=== PATIENT | female | born 1975 | race American Indian/Alaskan Native ===

== ENCOUNTER 2018-07-12 13:43 | Inpatient (IN) | payer OTHER ==
[2018-07-12 14:45] LABS: Basophils % (Auto) 0.3 % (0.0-1.8); Eosinophils % (Auto) 0.1 % (0.0-4.3); Hematocrit 22.2 % (30.3-42.9); Hemoglobin 6.4 gm/dl (10.1-14.3); Lymphocytes # (Auto) 1.2 K/mm3 (1.2-5.4); Lymphocytes % (Auto) 11.7 % (13.4-35.0); Mean Corpuscular HGB Conc 29 % (30-34); Monocytes # (Auto) 0.4 K/mm3 (0.0-0.8); Monocytes % (Auto) 4.4 % (0.0-7.3); Platelet Count 399 K/mm3 (140-440); Red Blood Count 3.36 M/mm3 (3.65-5.03)
[2018-07-12 14:48] LABS: Mean Corpuscular Hemoglobin 19 pg (28-32); Mean Corpuscular Volume 66 fl (79-97); Red Cell Distribution Width 20.2 % (13.2-15.2)
[2018-07-12] MEDS ORDERED: NACL 0.9% 1000 ML 1,000 ML IV ONE (14:48)
[2018-07-12] MEDS ORDERED: MORPHINE IV ONE (14:48)
[2018-07-12] MEDS ORDERED: ZOFRAN IV ONE (14:48)
[2018-07-12] MEDS ORDERED: TORADOL IV ONE (14:48)
--- NOTE | 2018-07-12 14:54 | Emergency Department Report ---
ED General Adult HPI - General Chief complaint: Abdominal Pain Stated complaint: WEAKNESS/ABD PAIN Time Seen by Provider: 07/12/18 14:43 Source: patient, EMS Mode of arrival: Ambulatory Limitations: No Limitations - History of Present Illness Initial comments: Patient is a 43-year-old Martiniqu[place] female who is presenting with multiple complaints. Patient states she has a history of peripheral neuropathy and has had multiple episodes where she has some much pain in her legs that she can't move. Patient states she cannot move her legs at this time. She states she has 8 out of 10 pain in the bilateral lower extremities as a burning sensation. Patient also states she has a burning sensation in the suprapubic region as well with fecal and urinary incontinence. Patient denies any back pain. Patient denies fever or trauma. -: days(s) (4) Severity scale (0 -10): 10 Quality: burning Consistency: constant Associated Symptoms: headaches, malaise. denies: confusion, chest pain, cough, diaphoresis, fever/chills, loss of appetite, nausea/vomiting, rash, seizure, shortness of breath, syncope, weakness - Related Data Home Medications Medication Instructions Recorded Confirmed Last Taken Ranitidine HCl [Zantac] 150 mg PO BID 08/28/13 04/22/15 04/21/15 Previous Rx's Medication Instructions Recorded Last Taken Type Clopidogrel [Plavix] 75 mg PO QDAY #30 tablet 04/23/15 Unknown Rx Ferrous Sulfate [Feosol 325 MG tab] 325 mg PO TID #30 04/23/15 04/21/15 Rx Simvastatin [Zocor TAB] 20 mg PO QHS #30 tablet 04/23/15 Unknown Rx Allergies Allergy/AdvReac Type Severity Reaction Status Date / Time aspirin Allergy Hives Verified 04/22/15 07:02 ED Review of Systems ROS: Stated complaint: WEAKNESS/ABD PAIN Other details as noted in HPI Comment: All other systems reviewed and negative ED Past Medical Hx - Past Medical History Previous Medical History?: Yes Hx Hypertension: Yes Hx CVA: Yes (TIA) Hx Congestive Heart Failure: No Hx Diabetes: No Hx GERD: Yes Hx Asthma: Yes Hx COPD: No - Surgical History Past Surgical History?: Yes Additional Surgical History: csection x 7 - Social History Smoking Status: Never Smoker Substance Use Type: None - Medications Home Medications: Home Medications Medication Instructions Recorded Confirmed Last Taken Type Ranitidine HCl [Zantac] 150 mg PO BID 08/28/13 04/22/15 04/21/15 History Clopidogrel [Plavix] 75 mg PO QDAY #30 tablet 04/23/15 Unknown Rx Ferrous Sulfate [Feosol 325 MG tab] 325 mg PO TID #30 04/23/15 04/22/15 Rx Simvastatin [Zocor TAB] 20 mg PO QHS #30 tablet 04/23/15 Unknown Rx ED Physical Exam - General Limitations: No Limitations General appearance: alert, in no apparent distress, obese - Head Head exam: Present: atraumatic, normocephalic - Eye Eye exam: Present: normal appearance - ENT ENT exam: Present: mucous membranes moist - Neck Neck exam: Present: normal inspection - Respiratory Respiratory exam: Present: normal lung sounds bilaterally. Absent: respiratory distress, wheezes, rales, rhonchi - Cardiovascular Cardiovascular Exam: Present: regular rate, normal rhythm. Absent: systolic murmur, diastolic murmur, rubs, gallop - GI/Abdominal GI/Abdominal exam: Present: soft, normal bowel sounds. Absent: distended, tenderness, guarding, rebound - Extremities Exam Extremities exam: Present: normal inspection, tenderness (H and states she has generalized tenderness to the bilateral lower extremities. Patient initially stated that she was unable to move however she was able to straighten both legs out on her own.), normal capillary refill. Absent: joint swelling - Back Exam Back exam: Present: normal inspection - Neurological Exam Neurological exam: Present: alert, oriented X3, CN II-XII intact, motor sensory deficit (patient with 4 out of 5 strength in the bilateral lower extremities. Patient states she is able to feel light touch bilaterally.) - Psychiatric Psychiatric exam: Present: normal affect, normal mood - Skin Skin exam: Present: warm, dry, intact, normal color. Absent: rash ED Course Vital Signs 07/12/18 07/12/18 07/12/18 14:12 14:16 14:17 Temperature 99.3 F Pulse Rate 85 93 H Respiratory 19 16 Rate Blood Pressure 109/61 Blood Pressure 109/61 [Left] O2 Sat by Pulse 100 100 100 Oximetry 07/12/18 07/12/18 07/12/18 14:30 14:46 15:00 Temperature Pulse Rate 70 85 82 Respiratory 19 22 19 Rate Blood Pressure 109/61 109/61 116/80 Blood Pressure [Left] O2 Sat by Pulse 100 98 100 Oximetry 07/12/18 07/12/18 07/12/18 15:16 15:30 15:46 Temperature Pulse Rate 84 89 81 Respiratory 24 18 16 Rate Blood Pressure 116/80 103/66 103/66 Blood Pressure [Left] O2 Sat by Pulse 99 100 100 Oximetry 07/12/18 07/12/18 07/12/18 16:00 16:16 16:30 Temperature Pulse Rate 83 72 70 Respiratory 16 13 21 Rate Blood Pressure 103/66 116/69 116/69 Blood Pressure [Left] O2 Sat by Pulse 100 100 100 Oximetry ED Medical Decision Making - Lab Data Result diagrams: 07/12/18 14:33 07/12/18 14:33 Lab Results 07/12/18 07/12/18 07/12/18 Range/Units 14:33 14:33 Unknown WBC 10.0 (4.5-11.0) K/mm3 RBC 3.36 L (3.65-5.03) M/mm3 Hgb 6.4 L (10.1-14.3) gm/dl Hct 22.2 L (30.3-42.9) % MCV 66 L (79-97) fl MCH 19 L (28-32) pg MCHC 29 L (30-34) % RDW 20.2 H (13.2-15.2) % Plt Count 399 (140-440) K/mm3 Lymph % (Auto) 11.7 L (13.4-35.0) % [place] % (Auto) 4.4 (0.0-7.3) % Eos % (Auto) 0.1 (0.0-4.3) % Baso % (Auto) 0.3 (0.0-1.8) % Lymph # 1.2 (1.2-5.4) K/mm3 [place] # 0.4 (0.0-0.8) K/mm3 Eos # 0.0 (0.0-0.4) K/mm3 Baso # 0.0 (0.0-0.1) K/mm3 Seg Neutrophils % 83.5 H (40.0-70.0) % Seg Neutrophils # 8.3 H (1.8-7.7) K/mm3 Sodium 138 (137-145) mmol/L Potassium 4.0 (3.6-5.0) mmol/L Chloride 107.8 H (98-107) mmol/L Carbon Dioxide 17 L (22-30) mmol/L Anion Gap 17 mmol/L BUN 8 (7-17) mg/dL Creatinine 0.5 L (0.7-1.2) mg/dL Estimated GFR > 60 ml/min BUN/Creatinine Ratio 16 % Glucose 100 (65-100) mg/dL Calcium 8.4 (8.4-10.2) mg/dL Lipase 12 L (13-60) units/L Urine Color Yellow (Yellow) Urine Turbidity Cloudy (Clear) Urine pH 6.0 (5.0-7.0) Ur Specific [place] 1.009 (1.003-1.030) Urine Protein <15 mg/dl (Negative) mg/dL Urine Glucose (UA) Neg (Negative) mg/dL Urine Ketones Tr (Negative) mg/dL Urine Blood Mod (Negative) Urine Nitrite Pos (Negative) Ur Reducing Substances Not Reportable Urine Bilirubin Neg (Negative) Urine Ictotest Not Reportable Urine Urobilinogen 2.0 (<2.0) mg/dL Ur Leukocyte Esterase Sm (Negative) Urine WBC (Auto) 46.0 H (0.0-6.0) /HPF Urine RBC (Auto) 31.0 (0.0-6.0) /HPF U Epithel Cells (Auto) 5.0 (0-13.0) /HPF Urine Bacteria (Auto) 4+ (Negative) /HPF Urine Mucus Few /HPF Urine Yeast (Budding) 3+ /HPF Urine HCG, Qual Negative (Negative) - Medical Decision Making Patient is a 43-year-old female who states she's been incontinent of stool and urine for the past 3 days. After the patient's hemoglobin returned did ask the patient she's noticed any blood in the stools and she stated that she had. Patient states she has a burning sensation in the suprapubic region, urinalysis does show that the patient has a urinary tract infection. Regarding the patient 's anemia patient has some chronic anemia but not to this degree according to the last studies that are in the [facility] system. Patient was guaiac negative at this time. Patient's type and screen will be given 1 unit of packed red blood cells. Patient's numbness in her extremities most likely secondary to her anemia and peripheral neuropathy. Patient be admitted to the hospitalist service at this time. Critical care attestation.: If time is entered above; I have spent that time in minutes in the direct care of this critically ill patient, excluding procedure time. ED Disposition Clinical Impression: Symptomatic anemia, Weakness Acute cystitis Qualifiers: Hematuria presence: with hematuria Qualified Code(s): N30.01 - Acute cystitis with hematuria Disposition: OP ADMIT IP TO THIS HOSP Is pt being admited?: Yes Does the pt Need Aspirin: No Condition: Stable Instructions: Abdominal Pain (ED) Referrals: PRIMARY CARE, [Primary Care Provider] - 3-5 Days Time of Disposition: 17:17
[2018-07-12 15:19] LABS: BUN/Creatinine Ratio 16; Blood Urea Nitrogen 8 mg/dL (7-17); Calcium 8.4 mg/dL (8.4-10.2); Hemolysis Index 2; Lipase 12 units/L (13-60)
[2018-07-12 16:39] LABS: HCG Qualitative,Urine Negative (Negative)
[2018-07-12 16:41] LABS: Bacteria,Urine 4+ /HPF (Negative); Bilirubin,Urine NEG (Negative); Blood,Urine MOD (Negative); Color,Urine Yellow (Yellow); Mucus,Urine FEW /HPF; Protein,Urine <15 mg/dL mg/dL (Negative)
[2018-07-12] MEDS ORDERED: NACL 0.9% 500 ML 500 ML IV ONE (17:01)
[2018-07-12] MEDS ORDERED: LEVAQUIN 500MG/100ML 500 MG/100 ML BAG IV ONE (17:02)
--- NOTE | 2018-07-12 17:15 | History and Physical Report ---
History of Present Illness Chief complaint: I feel weak History of present illness: 43 YO Female with MO, GERD, Asthma, HTN, Peripheral Neuropathy, TIA presents to ED for evaluation. Pt states that she has experienced leg weaknes and tingling over the past 1 week, with worsening symptoms over the past 1 day. Pt states that she is unable to walk at this time, or bear weight. Pt states that is asked to walk she will "Fall flat on my face". Pt also acknowledges a burning pain to both legs. Pt states that pain is 10/10, constant. Pt acknowledges fecal and urinary incontinence. Pt denies fever, chills, PC, palpitations, NVD, skin rash, or recent ill contacts. Pt seen and evaluated in ED and found to have UTI, Symptomatic Anemia, as well as Hyperchloremic metabolic acidosis. Pt admitted to medical floor. Neurology consulted in ED. Past History Past Medical History: GERD, hypertension, stroke Past Surgical History: Social history: single. denies: smoking, alcohol abuse, prescription drug abuse Family history: hypertension Medications and Allergies Allergies Allergy/AdvReac Type Severity Reaction Status Date / Time aspirin Allergy Hives Verified 04/22/15 07:02 Home Medications Medication Instructions Recorded Confirmed Last Taken Type Ranitidine HCl [Zantac] 150 mg PO BID 08/28/13 04/22/15 04/21/15 History Clopidogrel [Plavix] 75 mg PO QDAY #30 tablet 04/23/15 Unknown Rx Ferrous Sulfate [Feosol 325 MG tab] 325 mg PO TID #30 04/23/15 04/22/15 Rx Simvastatin [Zocor TAB] 20 mg PO QHS #30 tablet 04/23/15 Unknown Rx Active Meds: Active Medications Levofloxacin/Dextrose (Levaquin 500mg/100ml) 500 mg in 100 mls @ 100 mls/hr IV ONCE ONE Stop: 07/12/18 18:01 Review of Systems Constitutional: weakness, no weight loss, no weight gain, no fever, no chills Ears, nose, mouth and throat: no ear pain, no ear discharge, no tinnitis, no decreased hearing, no nose pain, no nasal congestion, no nasal discharge, no sinus pressure Breasts: no change in shape, no swelling, no mass Cardiovascular: no chest pain, no orthopnea, no palpitations, no rapid/ irregular heart beat, no edema, no syncope, no lightheadedness Respiratory: no cough, no cough with sputum, no excessive sputum, no hemoptysis , no shortness of breath Gastrointestinal: no abdominal pain, no nausea, no vomiting Genitourinary Female: other (urinary incontinence), no pelvic pain, no flank pain, no menorrhagia, no dysuria, no urinary frequency, no urgency Rectal: no pain, no incontinence, no bleeding Musculoskeletal: no neck stiffness, no neck pain, no shooting arm pain, no arm numbness/tingling, no low back pain, no shooting leg pain, no leg numbness/ tingling Integumentary: no rash, no pruritis, no sores, no wounds, no jaundice Neurological: weakness, parathesias, numbness, tingling Psychiatric: no anxiety, no memory loss, no change in sleep habits, no sleep disturbances, no insomnia, no hypersomnia, no change in appetite, no change in libido Endocrine: no cold intolerance, no heat intolerance, no polyphagia, no excessive thirst, no polydipsia, no polyuria, no nocturia, no excessive sweating Hematologic/Lymphatic: no easy bruising, no easy bleeding, no lymphadenopathy, no lymphedema Allergic/Immunologic: no urticaria, no allergic rhinitis, no wheezing, no persistent infections, no anaphylaxis, no angioedema Exam - Constitutional Vitals: Temp Pulse Resp BP Pulse Ox 99.3 F 70 21 116/69 100 07/12/18 14:17 07/12/18 16:30 07/12/18 16:30 07/12/18 16:30 07/12/18 16:30 General appearance: Present: mild distress, obese - EENT Eyes: Present: PERRL ENT: hearing intact, clear oral mucosa - Neck Neck: Present: supple, normal ROM - Respiratory Respiratory effort: normal Respiratory: bilateral: CTA - Cardiovascular Heart Sounds: Present: S1 & S2. Absent: rub, click - Extremities Extremities: pulses symmetrical, No edema Peripheral Pulses: within normal limits - Abdominal General gastrointestinal: Present: soft, non-tender, non-distended, normal bowel sounds Female genitourinary: Present: normal - Integumentary Integumentary: Present: clear, warm, dry - Musculoskeletal Musculoskeletal: other (BLE Weakness, ) - Psychiatric Psychiatric: intact judgment & insight, memory intact, depressed - Neurologic Neurologic: CNII-XII intact, focal deficits, no moves all extremities, no gait normal Results - Labs CBC & Chem 7: 07/12/18 14:33 07/12/18 14:33 Labs: Abnormal lab results 07/12/18 07/12/18 07/12/18 Range/Units 14:33 14:33 Unknown RBC 3.36 L (3.65-5.03) M/mm3 Hgb 6.4 L (10.1-14.3) gm/dl Hct 22.2 L (30.3-42.9) % MCV 66 L (79-97) fl MCH 19 L (28-32) pg MCHC 29 L (30-34) % RDW 20.2 H (13.2-15.2) % Lymph % (Auto) 11.7 L (13.4-35.0) % Seg Neutrophils % 83.5 H (40.0-70.0) % Seg Neutrophils # 8.3 H (1.8-7.7) K/mm3 Chloride 107.8 H (98-107) mmol/L Carbon Dioxide 17 L (22-30) mmol/L Creatinine 0.5 L (0.7-1.2) mg/dL Lipase 12 L (13-60) units/L Urine WBC (Auto) 46.0 H (0.0-6.0) /HPF Assessment and Plan - Patient Problems (1) UTI (urinary tract infection) Current Visit: Yes Status: Acute Qualifiers: Urinary tract infection type: acute cystitis Plan to address problem: IV antibiotic therapy, urinalysis, cbc, cmp, (2) Anemia Current Visit: Yes Status: Acute Qualifiers: Hemolytic anemia type: acquired, nonautoimmune, drug-induced Plan to address problem: PRBC Transfusion, repeat cbc, ESR, CRP, (3) Acidosis Current Visit: Yes Status: Acute Plan to address problem: IVF resuscitation, repeat bmp, (4) Obesity hypoventilation syndrome Current Visit: Yes Status: Acute Plan to address problem: supplemental oxygen, nebulizer therapy, NIPPV as clinically indicated. (5) Neuropathy Current Visit: Yes Status: Acute Plan to address problem: MRI Thoracic/Lumbar Spine, Neurology consult, ESR, CRP, Complement Levels, Magnesium level, Vitamin b12 level, initiate neurontin therapy (6) DVT prophylaxis Current Visit: Yes Status: Acute Plan to address problem: SCD to BLE while in bed.
[2018-07-12] MEDS ORDERED: PROVENTIL IH PRN (17:23)
[2018-07-12] MEDS ORDERED: SODIUM CHLORIDE FLUSH SYRINGE 10 ML IV PRN (17:23)
[2018-07-12] MEDS: FEOSOL PO SCH (20:00)
[2018-07-12 20:17] LABS: C-Reactive Protein 0.5 mg/dL (0.00-1.30)
[2018-07-12] MEDS: PEPCID PO SCH (21:38)
[2018-07-12] MEDS: NEURONTIN PO SCH (21:39)
[2018-07-12] MEDS: PRAVACHOL PO SCH (21:39)
[2018-07-12] MEDS ORDERED: NON-FORMULARY (Ranitidine Hcl [Zantac] 150 MG) PO SCH (22:00)
[2018-07-12] MEDS ORDERED: NON-FORMULARY (Simvastatin 20 MG) PO SCH (22:00)
[2018-07-12] MEDS: SODIUM CHLORIDE FLUSH SYRINGE 10 ML IV SCH (22:00)
[2018-07-12] MEDS ORDERED: NACL 0.9% 250ML 250 ML ONE (22:54)
[2018-07-12] MEDS: TYLENOL PO PRN (23:52)
[2018-07-13] MEDS: FEOSOL PO SCH ×3 (08:45→21:45)
[2018-07-13] MEDS: NEURONTIN PO SCH ×2 (09:21→21:46)
[2018-07-13] MEDS: PLAVIX PO SCH (09:21)
[2018-07-13] MEDS: PEPCID PO SCH ×2 (09:21→21:45)
[2018-07-13] MEDS: SODIUM CHLORIDE FLUSH SYRINGE 10 ML IV SCH ×2 (09:21→21:48)
[2018-07-13 10:46] LABS: Hematocrit 27.5 % (30.3-42.9); Hemoglobin 7.9 gm/dl (10.1-14.3)
[2018-07-13] MEDS: TYLENOL PO PRN (13:39)
[2018-07-13] MEDS: ZOFRAN IV PRN ×2 (13:40→22:06)
--- NOTE | 2018-07-13 15:07 | Progress Note ---
Assessment and Plan B/l LE weakness - had episode of urine and bladder incontinence per history but no episode since admission - MRI of the lumber back pending - neurology consulted to clinicallt r/o transverse mylitis/spinal cord stenosis /UTI (urinary tract infection) IV antibiotic therapy, follow cx /Blood loss Anemia s/p PRBC Transfusion, repeat cbc, likley from menorrhagia /Morbid Obesity nutrition recommendation / Neuropathy Current Visit: Yes Status: Acute Plan to address problem: MRI Thoracic/Lumbar Spine pending, Neurology consulted, ordered ESR, CRP, Complement Levels, Magnesium level, Vitamin b12 level, initiate neurontin therapy / DVT prophylaxis SCD to BLE while in bed. Subjective Date of service: 07/13/18 Interval history: Pt seen and examined no episode of urine and bowel incontinence today Showed poor tolerance to PT Objective - Constitutional Vitals: Vital Signs - 12hr 07/13/18 07/13/18 07/13/18 06:01 09:19 10:00 Temperature 99.4 F 98.9 F Pulse Rate 72 80 Respiratory 18 20 18 Rate Blood Pressure 107/64 113/65 O2 Sat by Pulse 98 100 Oximetry 07/13/18 13:39 Temperature Pulse Rate Respiratory 20 Rate Blood Pressure O2 Sat by Pulse Oximetry General appearance: Present: no acute distress, obese (morbid) - EENT Eyes: PERRL, EOM intact ENT: hearing intact, clear oral mucosa Ears: bilateral: normal - Neck Neck: supple, normal ROM - Respiratory Respiratory effort: normal Respiratory: bilateral: CTA - Cardiovascular Rhythm: regular Heart Sounds: Present: S1 & S2. Absent: gallop, rub Extremities: pulses intact, No edema, normal color - Gastrointestinal General gastrointestinal: Present: soft, non-tender, non-distended, normal bowel sounds - Integumentary Integumentary: clear, warm, dry - Musculoskeletal Musculoskeletal: other (b/l LE weakness) - Neurologic Neurologic: no gait normal - Psychiatric Psychiatric: memory intact, appropriate mood/affect, intact judgment & insight - Labs CBC & Chem 7: 07/14/18 07:41 07/14/18 07:41 Labs: Abnormal lab results 07/12/18 07/12/18 07/12/18 Range/Units 14:33 17:00 Unknown Hgb (10.1-14.3) gm/dl Hct (30.3-42.9) % Ch[place] 107.8 H (98-107) mmol/L Carbon Dioxide 17 L (22-30) mmol/L Creatinine 0.5 L (0.7-1.2) mg/dL Lipase 12 L (13-60) units/L Urine WBC (Auto) 46.0 H (0.0-6.0) /HPF Crossmatch See Detail 07/13/18 Range/Units 09:02 Hgb 7.9 L (10.1-14.3) gm/dl Hct 27.5 L (30.3-42.9) % [place] (98-107) mmol/L Carbon Dioxide (22-30) mmol/L Creatinine (0.7-1.2) mg/dL Lipase (13-60) units/L Urine WBC (Auto) (0.0-6.0) /HPF Crossmatch
--- NOTE | 2018-07-13 20:17 | Progress Note ---
Subjective Date of service: 07/13/18 Interval history: I took a very extensive history from patient she has PMH of severe anemia and prior peripheral neuropathy also hx of prior TIA;s due to lesion in carotid and was on plavix curiious that she was told CT/MRI have never shown stroke thee reflexes at ankles and knees are intact there is no clonus and Babinski sign is negative which argues agianst transverse myelitis and/o Guillain [place] Syndrome await MRI and diagnostic studies suspecct anemia and peripheral neuropathy thanks full note dictated Objective - Vital Sign Vital Signs - 12hr 07/13/18 07/13/18 07/13/18 09:19 10:00 11:50 Temperature 98.9 F 98.5 F Pulse Rate 80 80 Respiratory 20 18 19 Rate Blood Pressure 113/65 107/59 O2 Sat by Pulse 100 100 100 Oximetry 07/13/18 07/13/18 13:39 17:10 Temperature 97.9 F Pulse Rate 79 Respiratory 20 19 Rate Blood Pressure 120/74 O2 Sat by Pulse 100 Oximetry - Laboratory Findings CBC and BMP: 07/13/18 09:02 07/12/18 14:33 Abnormal Lab Findings: Abnormal Labs 07/12/18 07/12/18 07/12/18 14:33 14:33 17:00 RBC 3.36 L Hgb 6.4 L Hct 22.2 L MCV 66 L MCH 19 L MCHC 29 L RDW 20.2 H Lymph % (Auto) 11.7 L Seg Neutrophils % 83.5 H Seg Neutrophils # 8.3 H Chloride 107.8 H Carbon Dioxide 17 L Creatinine 0.5 L Lipase 12 L Urine WBC (Auto) Crossmatch See Detail 07/12/18 07/13/18 Unknown 09:02 RBC Hgb 7.9 L Hct 27.5 L MCV MCH MCHC RDW Lymph % (Auto) Seg Neutrophils % Seg Neutrophils # Chloride Carbon Dioxide Creatinine Lipase Urine WBC (Auto) 46.0 H Crossmatch
[2018-07-13] MEDS: PRAVACHOL PO SCH (21:45)
[2018-07-13] MEDS: NORCO 5/325 PO PRN (22:59)
[2018-07-14 08:27] LABS: Basophils % (Auto) 0.4 % (0.0-1.8); Eosinophils # (Auto) 0.2 K/mm3 (0.0-0.4); Eosinophils % (Auto) 2.8 % (0.0-4.3); Hemoglobin 7.5 gm/dl (10.1-14.3); Lymphocytes # (Auto) 2.3 K/mm3 (1.2-5.4); Lymphocytes % (Auto) 27.3 % (13.4-35.0); Mean Corpuscular HGB Conc 30 % (30-34); Monocytes # (Auto) 0.7 K/mm3 (0.0-0.8); Monocytes % (Auto) 8.5 % (0.0-7.3); Platelet Count 376 K/mm3 (140-440); Red Blood Count 3.68 M/mm3 (3.65-5.03)
[2018-07-14 08:35] LABS: BUN/Creatinine Ratio 15; Blood Urea Nitrogen 6 mg/dL (7-17); Calcium 8.3 mg/dL (8.4-10.2); Hemolysis Index 2; Mean Corpuscular Hemoglobin 20 pg (28-32); Mean Corpuscular Volume 68 fl (79-97)
[2018-07-14 08:36] LABS: Red Cell Distribution Width 20.8 % (13.2-15.2)
[2018-07-14] MEDS: SODIUM CHLORIDE FLUSH SYRINGE 10 ML IV SCH (11:25)
[2018-07-14] MEDS: NEURONTIN PO SCH ×2 (11:25→21:36)
[2018-07-14] MEDS: FEOSOL PO SCH ×3 (11:25→21:37)
[2018-07-14] MEDS: PLAVIX PO SCH (11:25)
[2018-07-14] MEDS: PEPCID PO SCH ×2 (11:25→21:37)
--- NOTE | 2018-07-14 13:08 | Progress Note ---
Assessment and Plan B/l LE weakness - had episode of urine and bladder incontinence per history but no episode since admission - MRI of the lumber back pending - neurology consulted to r/o transverse mylitis/spinal cord stenosis - clinically ruled out /UTI (urinary tract infection) IV antibiotic therapy, follow cx /Blood loss Anemia s/p PRBC Transfusion, repeat cbc, likely from menorrhagia due to fibroiduterus /Morbid Obesity nutrition recommendation / Peripheral Neuropathy MRI Thoracic/Lumbar Spine pending, Neurology consulted, normal CRP, and Vitamin b12 level, initiated neurontin therapy / DVT prophylaxis SCD to BLE while in bed. Radiological data: CT abdomen/pelvis: 1. Bilateral nonobstructive renal calculi. No hydronephrosis. 2. Enlarged and heterogeneous uterus with likely a large fibroid within the fundus measuring approximately 7-8 centimeters. Physical exam: General appearance: Present: no acute distress, obese (morbid) - EENT Eyes: PERRL, EOM intact ENT: hearing intact, clear oral mucosa Ears: bilateral: normal - Neck Neck: supple, normal ROM - Respiratory Respiratory effort: normal Respiratory: bilateral: CTA - Cardiovascular Rhythm: regular Heart Sounds: Present: S1 & S2. Absent: gallop, rub Extremities: pulses intact, No edema, normal color - Gastrointestinal General gastrointestinal: Present: soft, non-tender, non-distended, normal bowel sounds - Integumentary Integumentary: clear, warm, dry - Musculoskeletal Musculoskeletal: other (b/l LE weakness) - Neurologic Neurologic: no gait normal - Psychiatric Psychiatric: memory intact, appropriate mood/affect, intact judgment & insight Subjective Date of service: 07/14/18 Interval history: Pt seen and examined no episode of urine and bowel incontinence today Repeat PT eval and MRI pending States feeling little better, sitting at the bedside Ambulated with assistance Objective - Constitutional Vitals: Vital Signs - 12hr 07/14/18 06:11 Temperature 98.4 F Pulse Rate 69 Respiratory 18 Rate Blood Pressure 116/72 O2 Sat by Pulse 99 Oximetry - Labs CBC & Chem 7: 07/14/18 07:41 07/14/18 07:41 Labs: Abnormal lab results 07/14/18 07/14/18 Range/Units 07:41 07:41 Hgb 7.5 L (10.1-14.3) gm/dl Hct 25.0 L (30.3-42.9) % MCV 68 L (79-97) fl MCH 20 L (28-32) pg RDW 20.8 H (13.2-15.2) % [place] % (Auto) 8.5 H (0.0-7.3) % Chloride 109.5 H (98-107) mmol/L Carbon Dioxide 20 L (22-30) mmol/L BUN 6 L (7-17) mg/dL Creatinine 0.4 L (0.7-1.2) mg/dL Calcium 8.3 L (8.4-10.2) mg/dL
--- NOTE | 2018-07-14 16:12 | Progress Note ---
Subjective Date of service: 07/14/18 Interval history: reflexes all intact no focal weakness leg c/o are neuropathy based unclear how this relates to anemia Objective - Vital Sign Vital Signs - 12hr 07/14/18 07/14/18 06:11 12:56 Temperature 98.4 F 98.7 F Pulse Rate 69 69 Respiratory 18 18 Rate Blood Pressure 116/72 113/71 O2 Sat by Pulse 99 100 Oximetry - Laboratory Findings CBC and BMP: 07/14/18 07:41 07/14/18 07:41 Abnormal Lab Findings: Abnormal Labs 07/12/18 07/12/18 07/12/18 14:33 14:33 17:00 RBC 3.36 L Hgb 6.4 L Hct 22.2 L MCV 66 L MCH 19 L MCHC 29 L RDW 20.2 H Lymph % (Auto) 11.7 L [place] % (Auto) Seg Neutrophils % 83.5 H Seg Neutrophils # 8.3 H Chloride 107.8 H Carbon Dioxide 17 L BUN Creatinine 0.5 L Calcium Lipase 12 L Urine WBC (Auto) Crossmatch See Detail 07/12/18 07/13/18 07/14/18 Unknown 09:02 07:41 RBC Hgb 7.9 L 7.5 L Hct 27.5 L 25.0 L MCV 68 L MCH 20 L MCHC RDW 20.8 H Lymph % (Auto) [place] % (Auto) 8.5 H Seg Neutrophils % Seg Neutrophils # Chloride Carbon Dioxide BUN Creatinine Calcium Lipase Urine WBC (Auto) 46.0 H Crossmatch 07/14/18 07:41 RBC Hgb Hct MCV MCH MCHC RDW Lymph % (Auto) [place] % (Auto) Seg Neutrophils % Seg Neutrophils # Chloride 109.5 H Carbon Dioxide 20 L BUN 6 L Creatinine 0.4 L Calcium 8.3 L Lipase Urine WBC (Auto) Crossmatch
--- NOTE | 2018-07-14 19:55 | Consultation ---
HISTORY OF PRESENT ILLNESS: This is a 43-year-old black female that presents to [facility] as a new admission. The patient presents with a history of multiple neurological problems, anemia, severe heavy periods and other symptoms related to generalized weakness, neuropathy. The interesting part of her history from a neurological point of view is she has been admitted multiple times to [facility]. She stated that she had a partial blockage in one of the arteries in her neck and was placed on Plavix therapy; however, in asking her about whether she has had a positive brain scan, she stated that the numbness and weakness in her legs was explained because she had peripheral neuropathy, although she is not aware of the exact diagnosis. She also does not know the cause of her anemia, although her periods have been very heavy. When she presented to the hospital, she had a creatinine of 0.5, hematocrit of 22.2, white blood count of 10,000 with a normal diff. Lipase was 12. Vitamin B12 level was 248. Magnesium is 1.9. She specifically stated that she had problems with losing her urine and it should be noted that her urinalysis showed increased white blood cells to 46,000 and 4+ bacteriuria. She also states she has some trouble with holding her bowel. She was weak in her legs, but this apparently has been present previously, has been worked up at [facility] at least on several admissions. I did speak with one of her family members, who was in the room. They could not provide any other history that was more detailed or valid that deals with these complaints. She was not told the exact cause of her anemia. She has received blood transfusions previously for this. ALLERGIES: She has allergy to ASPIRIN. SOCIAL HISTORY: She does not work. She is . PHYSICAL EXAMINATION: VITAL SIGNS: On examination, her vital signs show her blood pressure to be 107/59, temperature is 98.5 degrees, pulse rate is 80, respirations 18. NEUROLOGIC: Cranial nerves 2-12 are intact. Speech is clear. Affect appropriate. Neck is Supple. Visual mai are full. Extraocular movements are full. Cranial nerves are intact. The patient's puppet master strength is equal. Motor tone is symmetrical. The conspicuous part of her examination is actually the fact that she has normal plantar reflexes. Babinski signs are negative. She has intact reflexes at knees, which are 3+ and intact reflexes at the ankles are 2+. She does have intact sensation to moving her legs and she does have leg movement bilaterally, although she states that her legs feel weak. She moves her upper extremities completely normal. IMPRESSION: This patient's neurological examination clearly does not show evidence of Guillain-[place] or peripheral neuropathy with motor findings because of the intact reflexes. Well may be that I agree with the Emergency Room physician that her generalized weakness and numbness is anemia based, at least at some point, she has received a very extensive workup for transient ischemic attacks and stroke at [facility] and by history, was placed on Plavix therapy. I think it would be important to get copies of the diagnostic studies at [place] to see whether she had an MRI and that should be of course repeated. She has an aspirin allergy. One issue that concerns me is with anemia, I would ordinarily not want the patient taking Plavix therapy. I am not sure about how this is being managed, this is altogether unclear. Given her age, she falls out of the category of typical vascular disease. I would recommend getting a carotid ultrasound. We may have to do a CTA on the patient to further assess this and at least her creatinine is normal, this may be worth pursuing. I am not sure with her size whether MRI can be done, probably will be worthwhile getting records from [facility] to see the status of diagnostic imaging studies. Thank you for this consult. JOB# [id number] JANINE/RENETTA
[2018-07-14] MEDS: NORCO 5/325 PO PRN (20:45)
[2018-07-14] MEDS: PRAVACHOL PO SCH (21:36)
[2018-07-14] MEDS: ZOFRAN IV PRN (23:23)
--- NOTE | 2018-07-15 09:43 | Cat Scan Report ---
FINAL REPORT EXAM: CT ABDOMEN PELVIS WO/W CON HISTORY: pelvic pain COMPARISON: None. TECHNIQUE: Multiple contiguous axial images were obtained from the lung bases to the pubic symphysis before and after administration of IV contrast. Reformatted sagittal and coronal images were available for review. FINDINGS: Lung bases: Streaky atelectasis at the bilateral lung bases. Visualized heart and mediastinum: Normal. Liver: Normal. Spleen: Normal. Pancreas: Normal. Gallbladder and Biliary Tree: The gallbladder is surgically absent. No biliary ductal dilatation. Adrenal glands: Normal. Kidneys: Bilateral nonobstructive renal calculi measuring up to 7 millimeters on the right and 5 millimeters on the left. Bladder: Normal. Pelvic organs: There is an enlarged heterogeneous uterus, with likely a large fibroid within the fundus measuring approximately 7-8 centimeters. Bowel: No focal wall thickening. No evidence of obstruction. Normal appendix without surrounding inflammatory change. Oral contrast advances to the rectum. Peritoneum: No significant mesenteric adenopathy. No free air or free fluid. Vasculature: Abdominal aorta is normal in caliber without evidence of aneurysm. Normal appearance of the portal venous system and the inferior vena cava. Bones and soft tissues: No suspicious osseous lesions. No acute fracture or dislocation. Midline lower abdominal scar. IMPRESSION: 1. Bilateral nonobstructive renal calculi. No hydronephrosis. 2. Enlarged and heterogeneous uterus with likely a large fibroid within the fundus measuring approximately 7-8 centimeters.
[2018-07-15] MEDS: NEURONTIN PO SCH ×2 (10:07→21:33)
[2018-07-15] MEDS: PLAVIX PO SCH (10:07)
[2018-07-15] MEDS: PEPCID PO SCH ×2 (10:07→21:33)
[2018-07-15] MEDS: FEOSOL PO SCH ×3 (10:07→21:33)
[2018-07-15] MEDS: SODIUM CHLORIDE FLUSH SYRINGE 10 ML IV SCH ×2 (10:08→21:39)
[2018-07-15] MEDS: ZOFRAN IV PRN ×2 (15:15→22:59)
--- NOTE | 2018-07-15 16:12 | Progress Note ---
Assessment and Plan B/l LE weakness - had episode of urine and bladder incontinence per history but no episode since admission - MRI of the lumber back pending - neurology consulted to r/o transverse mylitis/spinal cord stenosis - clinically ruled out - d/c pending on PT eval and recommendation /UTI (urinary tract infection) IV antibiotic therapy, follow cx /Blood loss Anemia s/p PRBC Transfusion, repeat cbc, likely from menorrhagia due to fibroiduterus /Morbid Obesity nutrition recommendation / Peripheral Neuropathy MRI Thoracic/Lumbar Spine pending, Neurology consulted, normal CRP, and Vitamin b12 level, initiated neurontin therapy / DVT prophylaxis SCD to BLE while in bed. Brief history: 43 YO Female with MO, GERD, Asthma, HTN, Peripheral Neuropathy, TIA presents to ED for evaluation of leg weaknes and tingling over the past 1 week. Pt states that she is unable to walk at this time, or bear weight. Pt seen and evaluated in ED and found to have UTI, Symptomatic Anemia. Pt admitted to medical floor. Neurology consulted in ED. Radiological data: CT abdomen/pelvis: 1. Bilateral nonobstructive renal calculi. No hydronephrosis. 2. Enlarged and heterogeneous uterus with likely a large fibroid within the fundus measuring approximately 7-8 centimeters. Physical exam: General appearance: Present: no acute distress, obese (morbid) - EENT Eyes: PERRL, EOM intact ENT: hearing intact, clear oral mucosa Ears: bilateral: normal - Neck Neck: supple, normal ROM - Respiratory Respiratory effort: normal Respiratory: bilateral: CTA - Cardiovascular Rhythm: regular Heart Sounds: Present: S1 & S2. Absent: gallop, rub Extremities: pulses intact, No edema, normal color - Gastrointestinal General gastrointestinal: Present: soft, non-tender, non-distended, normal bowel sounds - Integumentary Integumentary: clear, warm, dry - Musculoskeletal Musculoskeletal: other (b/l LE weakness) - Neurologic Neurologic: no gait normal - Psychiatric Psychiatric: memory intact, appropriate mood/affect, intact judgment & insight Subjective Date of service: 07/15/18 Interval history: Pt seen and examined no episode of urine and bowel incontinence today had Repeat PT eval and MRI report pending States feeling little better, sitting at the bedside Ambulated with assistance Objective - Constitutional Vitals: Vital Signs - 12hr 10/08/18 10/08/18 05:16 10:10 Temperature 98.4 F Pulse Rate 65 Respiratory 16 Rate Blood Pressure 101/61 O2 Sat by Pulse 100 100 Oximetry - Labs CBC & Chem 7: 07/14/18 07:41 07/14/18 07:41
[2018-07-15] MEDS: PRAVACHOL PO SCH (21:33)
[2018-07-15] MEDS: NORCO 5/325 PO PRN (21:39)
[2018-07-16] MEDS: PEPCID PO SCH ×2 (11:08→21:42)
[2018-07-16] MEDS: NEURONTIN PO SCH ×2 (11:08→21:41)
[2018-07-16] MEDS: FEOSOL PO SCH ×3 (11:08→20:54)
[2018-07-16] MEDS: PLAVIX PO SCH (11:08)
[2018-07-16] MEDS: SODIUM CHLORIDE FLUSH SYRINGE 10 ML IV SCH ×3 (11:09→21:47)
--- NOTE | 2018-07-16 14:16 | Progress Note ---
Assessment and Plan Assessment and plan: 43 YO Female with MO, GERD, Asthma, HTN, Peripheral Neuropathy, TIA presents to ED for evaluation of leg weaknes and tingling over the past 1 week. Pt states that she is unable to walk at this time, or bear weight. Pt seen and evaluated in ED and found to have UTI, Symptomatic Anemia. Pt admitted to medical floor. Neurology consulted in ED. Bilateral lower extremity weakness with episode of bladder incontinence - Currently patient doesn't have a lot of incontinence, there could be due to UTI -Neurology consulted and ruled out transverse myelitis/spinal cord stenosis -MRI is pending -PT recommendation is pending UTI (urinary tract infection) - IV antibiotic therapy - Culture, greater than 10,000 colony unit mixed bacteria, could be contamination Blood loss Anemia - s/p PRBC Transfusion - H&H is stable - likely from menorrhagia due to fibroiduterus Morbid Obesity - Counseled about exercise, weight loss, and diet Peripheral Neuropathy - MRI Thoracic/Lumbar Spine pending, Neurology consult appreciated - normal CRP, and Vitamin b12 level, - On Neurontin DVT prophylaxis SCD to BLE while in bed. Disposition - We'll soon discharged with home health after MRI and PT recommendation Radiological data: CT abdomen/pelvis: 1. Bilateral nonobstructive renal calculi. No hydronephrosis. 2. Enlarged and heterogeneous uterus with likely a large fibroid within the fundus measuring approximately 7-8 centimeters. History Interval history: Patient was seen and evaluated this morning, the patient still complaining bilateral lower extremity weakness. Hospitalist Physical - Physical exam Narrative exam: Not in cardiopulmonary distress. The patient is morbidly obese. Vital signs as documented. Head exam is unremarkable. No scleral icterus . Neck is without jugular venous distension, thyromegaly, or carotid bruits. Lungs are clear to auscultation. Cardiac exam reveals regular rate and Rhythm. Abdominal exam reveals normal bowel sounds, no masses, no organomegaly and no aortic enlargement. Extremities are nonedematous and both femoral and pedal pulses are normal. VISION TEACHER: Alert and oriented 3. Bilateral LE weakness. - Constitutional Vitals: Temp Pulse Resp BP Pulse Ox 98.3 F 70 16 108/56 100 07/16/18 05:44 07/16/18 05:44 07/16/18 05:44 07/16/18 05:44 07/16/18 05:44 General appearance: Present: no acute distress, obese (morbid) Results - Labs CBC & Chem 7: 07/14/18 07:41 07/14/18 07:41 Labs: Laboratory Last Values WBC 8.3 K/mm3 (4.5-11.0) 07/14/18 07:41 RBC 3.68 M/mm3 (3.65-5.03) 07/14/18 07:41 Hgb 7.5 gm/dl (10.1-14.3) L 07/14/18 07:41 Hct 25.0 % (30.3-42.9) L 07/14/18 07:41 MCV 68 fl (79-97) L 07/14/18 07:41 MCH 20 pg (28-32) L 07/14/18 07:41 MCHC 30 % (30-34) 07/14/18 07:41 RDW 20.8 % (13.2-15.2) H 07/14/18 07:41 Plt Count 376 K/mm3 (140-440) 07/14/18 07:41 Lymph % (Auto) 27.3 % (13.4-35.0) 07/14/18 07:41 [place] % (Auto) 8.5 % (0.0-7.3) H 07/14/18 07:41 Eos % (Auto) 2.8 % (0.0-4.3) 07/14/18 07:41 Baso % (Auto) 0.4 % (0.0-1.8) 07/14/18 07:41 Lymph # 2.3 K/mm3 (1.2-5.4) 07/14/18 07:41 Beadle # 0.7 K/mm3 (0.0-0.8) 07/14/18 07:41 Eos # 0.2 K/mm3 (0.0-0.4) 07/14/18 07:41 Baso # 0.0 K/mm3 (0.0-0.1) 07/14/18 07:41 Seg Neutrophils % 61.0 % (40.0-70.0) 07/14/18 07:41 Seg Neutrophils # 5.1 K/mm3 (1.8-7.7) 07/14/18 07:41 ESR 74 mm/Hr (0-20) 07/12/18 14:33 Sodium 141 mmol/L (137-145) 07/14/18 07:41 Potassium 3.6 mmol/L (3.6-5.0) 07/14/18 07:41 Chloride 109.5 mmol/L (98-107) H 07/14/18 07:41 Carbon Dioxide 20 mmol/L (22-30) L 07/14/18 07:41 Anion Gap 15 mmol/L 07/14/18 07:41 BUN 6 mg/dL (7-17) L 07/14/18 07:41 Creatinine 0.4 mg/dL (0.7-1.2) L 07/14/18 07:41 Estimated GFR > 60 ml/min 07/14/18 07:41 BUN/Creatinine Ratio 15 % 07/14/18 07:41 Glucose 90 mg/dL (65-100) 07/14/18 07:41 Calcium 8.3 mg/dL (8.4-10.2) L 07/14/18 07:41 Magnesium 1.90 mg/dL (1.7-2.3) 07/12/18 19:03 C-Reactive Protein 0.50 mg/dL (0.00-1.30) 07/12/18 19:03 Lipase 12 units/L (13-60) L 07/12/18 14:33 Vitamin B12 248.6 pg/mL (211-911) 07/12/18 19:03 Urine Color Yellow (Yellow) 07/12/18 Unknown Urine Turbidity Cloudy (Clear) 07/12/18 Unknown Urine pH 6.0 (5.0-7.0) 07/12/18 Unknown Ur Specific [place] 1.009 (1.003-1.030) 07/12/18 Unknown Urine Protein <15 mg/dl mg/dL (Negative) 07/12/18 Unknown Urine Glucose (UA) Neg mg/dL (Negative) 07/12/18 Unknown Urine Ketones Tr mg/dL (Negative) 07/12/18 Unknown Urine Blood Mod (Negative) 07/12/18 Unknown Urine Nitrite Pos (Negative) 07/12/18 Unknown Ur Reducing Substances Not Reportable 07/12/18 Unknown Urine Bilirubin Neg (Negative) 07/12/18 Unknown Urine Ictotest Not Reportable 07/12/18 Unknown Urine Urobilinogen 2.0 mg/dL (<2.0) 07/12/18 Unknown Ur Leukocyte Esterase Sm (Negative) 07/12/18 Unknown Urine WBC (Auto) 46.0 /HPF (0.0-6.0) H 07/12/18 Unknown Urine RBC (Auto) 31.0 /HPF (0.0-6.0) 07/12/18 Unknown U Epithel Cells (Auto) 5.0 /HPF (0-13.0) 07/12/18 Unknown Urine Bacteria (Auto) 4+ /HPF (Negative) 07/12/18 Unknown Urine Mucus Few /HPF 07/12/18 Unknown Urine Yeast (Budding) 3+ /HPF 07/12/18 Unknown Urine HCG, Qual Negative (Negative) 07/12/18 Unknown Tot Complement (CH50) >60 U/mL (31-60) H 07/12/18 18:57 Blood Type A POSITIVE 07/12/18 17:00 Antibody Screen Positive 07/12/18 17:00 Antibody Identification Anti-K 07/12/18 17:00 Crossmatch See Detail 07/12/18 17:00
[2018-07-16] MEDS: ZOFRAN IV PRN (21:41)
[2018-07-16] MEDS: NORCO 5/325 PO PRN (21:42)
[2018-07-16] MEDS: PRAVACHOL PO SCH (21:42)
[2018-07-17] MEDS: NORCO 5/325 PO PRN (06:30)
[2018-07-17 06:42] LABS: Hematocrit 25.8 % (30.3-42.9); Hemoglobin 7.5 gm/dl (10.1-14.3)
[2018-07-17] MEDS: FEOSOL PO SCH ×2 (08:52→14:00)
[2018-07-17] MEDS: NEURONTIN PO SCH (09:23)
[2018-07-17] MEDS: PEPCID PO SCH (09:23)
[2018-07-17] MEDS: PLAVIX PO SCH (09:23)
[2018-07-17] MEDS: SODIUM CHLORIDE FLUSH SYRINGE 10 ML IV SCH (09:24)
[2018-07-17] MEDS: ZOFRAN IV PRN (10:16)
--- NOTE | 2018-07-17 10:24 | Magnetic Resonance Report ---
FINAL REPORT PROCEDURE: MR THORACIC SPINE W CON TECHNIQUE: Magnetic resonance imaging of the thoracic spine was performed using standard pulse sequences before and after the IV injection of paramagnetic contrast. CPT 02182 HISTORY: weakness COMPARISON: No prior studies are available for comparison. FINDINGS: The vertebral body heights and alignment are maintained. No focal osseous lesion or bone marrow edema is seen. No cord signal abnormalities are identified. There is no disc herniation, spinal stenosis, or neural foraminal narrowing. No abnormal enhancement is seen. IMPRESSION: No acute abnormality is identified
--- NOTE | 2018-07-17 10:24 | Magnetic Resonance Report ---
FINAL REPORT PROCEDURE: MR LUMBAR SPINE W CON TECHNIQUE: Magnetic resonance imaging of the lumbar spine was performed using standard pulse sequences before and after the IV injection of paramagnetic contrast. CPT 59290 HISTORY: weakness COMPARISON: No prior studies are available for comparison. FINDINGS: The conus terminates at the level of T12-L1 and is unremarkable in appearance. The vertebral body heights and alignment are maintained. No acute marrow edema is seen. On the T1 weighted sequences, the marrow is diffusely homogeneously low in signal, which could be related to technical factors or red marrow. Correlate clinically to exclude marrow replacing process. There is no disc herniation, spinal stenosis, or neural foraminal narrowing. There is mild disc desiccation at L3-4. No abnormal enhancement is seen. IMPRESSION: No spinal stenosis or neural foraminal narrowing. No acute marrow edema is seen. On the T1 weighted sequences, the marrow is diffusely homogeneously low in signal, which could be related to technical factors or red marrow. Correlate clinically to exclude marrow replacing process.
--- NOTE | 2018-07-17 12:14 | Progress Note ---
Subjective Date of service: 07/17/18 Interval history: spoke with Dr. Cohn plan to check MRI and leave comment thanks Objective - Vital Sign Vital Signs - 12hr 07/17/18 06:06 Temperature 98.7 F Pulse Rate 81 Respiratory 16 Rate Blood Pressure 108/62 O2 Sat by Pulse 98 Oximetry - Laboratory Findings CBC and BMP: 07/17/18 05:44 07/14/18 07:41 Abnormal Lab Findings: Abnormal Labs 07/12/18 07/12/18 07/12/18 14:33 14:33 17:00 RBC 3.36 L Hgb 6.4 L Hct 22.2 L MCV 66 L MCH 19 L MCHC 29 L RDW 20.2 H Lymph % (Auto) 11.7 L [place] % (Auto) Seg Neutrophils % 83.5 H Seg Neutrophils # 8.3 H Chloride 107.8 H Carbon Dioxide 17 L BUN Creatinine 0.5 L Calcium Lipase 12 L Urine WBC (Auto) Complement C4 Tot Complement (CH50) Crossmatch See Detail 07/12/18 07/12/18 07/12/18 18:57 18:57 Unknown RBC Hgb Hct MCV MCH MCHC RDW Lymph % (Auto) [place] % (Auto) Seg Neutrophils % Seg Neutrophils # Chloride Carbon Dioxide BUN Creatinine Calcium Lipase Urine WBC (Auto) 46.0 H Complement C4 13 L Tot Complement (CH50) >60 H Crossmatch 07/13/18 07/14/18 07/14/18 09:02 07:41 07:41 RBC Hgb 7.9 L 7.5 L Hct 27.5 L 25.0 L MCV 68 L MCH 20 L MCHC RDW 20.8 H Lymph % (Auto) [place] % (Auto) 8.5 H Seg Neutrophils % Seg Neutrophils # Chloride 109.5 H Carbon Dioxide 20 L BUN 6 L Creatinine 0.4 L Calcium 8.3 L Lipase Urine WBC (Auto) Complement C4 Tot Complement (CH50) Crossmatch 07/17/18 05:44 RBC Hgb 7.5 L Hct 25.8 L MCV MCH MCHC RDW Lymph % (Auto) [place] % (Auto) Seg Neutrophils % Seg Neutrophils # Chloride Carbon Dioxide BUN Creatinine Calcium Lipase Urine WBC (Auto) Complement C4 Tot Complement (CH50) Crossmatch
--- NOTE | 2018-07-17 12:26 | Progress Note ---
Subjective Date of service: 07/17/18 Interval history: the MRI of the spine lumbar / thoracic is entirely normal except age related OA changes she can be discharged and follow up with me as outpatient thanks suspect entire picture is anemia complement level is non specific and sed rate chronic illness with UTI of note the c reactive protien is normal Objective - Vital Sign Vital Signs - 12hr 07/17/18 06:06 Temperature 98.7 F Pulse Rate 81 Respiratory 16 Rate Blood Pressure 108/62 O2 Sat by Pulse 98 Oximetry - Laboratory Findings CBC and BMP: 07/17/18 05:44 07/14/18 07:41 Abnormal Lab Findings: Abnormal Labs 07/12/18 07/12/18 07/12/18 14:33 14:33 17:00 RBC 3.36 L Hgb 6.4 L Hct 22.2 L MCV 66 L MCH 19 L MCHC 29 L RDW 20.2 H Lymph % (Auto) 11.7 L [place] % (Auto) Seg Neutrophils % 83.5 H Seg Neutrophils # 8.3 H Chloride 107.8 H Carbon Dioxide 17 L BUN Creatinine 0.5 L Calcium Lipase 12 L Urine WBC (Auto) Complement C4 Tot Complement (CH50) Crossmatch See Detail 07/12/18 07/12/18 07/12/18 18:57 18:57 Unknown RBC Hgb Hct MCV MCH MCHC RDW Lymph % (Auto) [place] % (Auto) Seg Neutrophils % Seg Neutrophils # Chloride Carbon Dioxide BUN Creatinine Calcium Lipase Urine WBC (Auto) 46.0 H Complement C4 13 L Tot Complement (CH50) >60 H Crossmatch 07/13/18 07/14/18 07/14/18 09:02 07:41 07:41 RBC Hgb 7.9 L 7.5 L Hct 27.5 L 25.0 L MCV 68 L MCH 20 L MCHC RDW 20.8 H Lymph % (Auto) [place] % (Auto) 8.5 H Seg Neutrophils % Seg Neutrophils # Chloride 109.5 H Carbon Dioxide 20 L BUN 6 L Creatinine 0.4 L Calcium 8.3 L Lipase Urine WBC (Auto) Complement C4 Tot Complement (CH50) Crossmatch 07/17/18 05:44 RBC Hgb 7.5 L Hct 25.8 L MCV MCH MCHC RDW Lymph % (Auto) [place] % (Auto) Seg Neutrophils % Seg Neutrophils # Chloride Carbon Dioxide BUN Creatinine Calcium Lipase Urine WBC (Auto) Complement C4 Tot Complement (CH50) Crossmatch
--- NOTE | 2018-07-17 12:29 | Discharge Summary ---
Providers - Providers Date of Admission: 07/12/18 17:23 Attending physician: ELVIN SANTORO MD 07/12/18 17:52 Consult to Physician [CONS] Routine Comment: Consulting Provider: JOSÉ MANUEL MAURICE Physician Instructions: Reason For Exam: weakness 07/13/18 12:28 Physical Therapy Evaluation and Treat [CONS] Routine Comment: Reason For Exam: leg weakness 07/13/18 13:33 Consult to Physician [CONS] Routine Comment: Consulting Provider: JOSÉ MANUEL MAURICE Physician Instructions: Reason For Exam: b/l LE extremity weakness with incontinent Primary care physician: CERTIFIED ADAPTIVE PHYSICAL EDUCATOR Hospitalization Reason for admission: Bilateral lower extremity weakness, UTI, Obesity Condition: Fair Disposition: [id number]/[id number] HOME UNDER HOME [facility] Time spent for discharge: 34 minutes - Discharge Diagnoses (1) Bilateral lower leg cellulitis Status: Acute (2) Acute cystitis Status: Acute Qualifiers: Hematuria presence: with hematuria Qualified Code(s): N30.01 - Acute cystitis with hematuria (3) Anemia Status: Acute Qualifiers: Hemolytic anemia type: acquired, nonautoimmune, drug-induced (4) Neuropathy Status: Acute (5) Obesity hypoventilation syndrome Status: Acute Core Measure Documentation - Palliative Care Palliative Care/ Comfort Measures: Not Applicable - Core Measures Any of the following diagnoses?: none Exam - Physical Exam Narrative exam: Not in cardiopulmonary distress. The patient is morbidly obese. Vital signs as documented. Head exam is unremarkable. No scleral icterus . Neck is without jugular venous distension, thyromegaly, or carotid bruits. Lungs are clear to auscultation. Cardiac exam reveals regular rate and Rhythm. Abdominal exam reveals normal bowel sounds, no masses, no organomegaly and no aortic enlargement. Extremities are nonedematous and both femoral and pedal pulses are normal. COMPUTER NETWORKER: Alert and oriented 3. Bilateral LE weakness. - Constitutional Vitals: Temp Pulse Resp BP Pulse Ox 98.7 F 81 16 108/62 98 07/17/18 06:06 07/17/18 06:06 07/17/18 06:06 07/17/18 06:06 07/17/18 06:06 Plan Activity: advance as tolerated Weight Bearing Status: Weight Bear as Tolerated Diet: low fat, low carbohydrate Special Instructions: physical therapy, occupational therapy Durable Medical Equipment Needed Upon Discharge: Wheelchair Additional Instructions: [facility] Follow up with: PRIMARY CARE, [Primary Care Provider] - 3-5 Days Prescriptions: Simvastatin [Zocor TAB] 20 mg PO QHS #30 tablet Clopidogrel [Plavix] 75 mg PO QDAY #30 tablet Famotidine [Pepcid] 20 mg PO BID #60 tablet Ferrous Sulfate [Feosol 325 MG tab] 325 mg PO TID #30 tablet Gabapentin [Neurontin] 300 mg PO BID #60 capsule
[2018-07-17 12:57] VITALS: BP 115/76
== END 2018-07-17 18:00 | disposition home health service (06) | DRG 603 ==
LOC: ED 13:43 → 3A 17:23
PROVIDERS: ADMIT Internal Medicine; ATTEND Internal Medicine
PROC: 30233N1 Transfusion of Nonautologous Red Blood Cells into Peripheral Vein, Percutaneous Approach (ICD-10-PCS; principal; 2018-07-13)
DX: L03.115 Cellulitis of right lower limb (principal); D59.2 Drug-induced nonautoimmune hemolytic anemia; E87.2 Acidosis; N30.01 Acute cystitis with hematuria; Z68.44 Body mass index [BMI] 60.0-69.9, adult; E66.2 Morbid (severe) obesity with alveolar hypoventilation; L03.116 Cellulitis of left lower limb; T50.995A Adverse effect of other drugs, medicaments and biological substances, initial encounter; K21.9 Gastro-esophageal reflux disease without esophagitis; G62.9 Polyneuropathy, unspecified; I10 Essential (primary) hypertension; Z86.73 Personal history of transient ischemic attack (TIA), and cerebral infarction without residual deficits; Z82.49 Family history of ischemic heart disease and other diseases of the circulatory system; Z88.6 Allergy status to analgesic agent; Y92.89 Other specified places as the place of occurrence of the external cause
CPT/HCPCS: 36415; 36430; 72157; 72158; 74178; 80048; 81001; 81025; 82271; 82607; 83690; 83735; 85014; 85018; 85025; 85652; 86140; 86160; 86162; 86850; 86870; 86900; 86901; 86922; 87086; 96361; 96374; 96375; A9270-GY; A9577; J1885; J1956; J2270; J2405; J7030; J7050; P9016; Q9967

== ENCOUNTER 2019-03-01 05:33 | Emergency (ER) | payer SELFPAY ==
--- NOTE | 2019-03-01 06:24 | XRay Report ---
PROCEDURE: XR CHEST ROUTINE 2V TECHNIQUE: PA and lateral chest radiographs were obtained. HISTORY: Chest Pain COMPARISONS: None. FINDINGS: Heart: Normal. Mediastinum/Vessels: Normal. Lungs/Pleural space: Normal. Bony thorax: No acute osseous abnormality. IMPRESSION: Normal examination. This document is electronically signed by Chari Betancur DO., Mar 01 2019 06:22:50 AM ET
[2019-03-01 06:29] LABS: Basophils % (Auto) 0.6 % (0.0-1.8); Eosinophils # (Auto) 0.1 K/mm3 (0.0-0.4); Eosinophils % (Auto) 1.3 % (0.0-4.3); Lymphocytes # (Auto) 1.9 K/mm3 (1.2-5.4); Lymphocytes % (Auto) 24.4 % (13.4-35.0); Mean Corpuscular HGB Conc 29 % (30-34); Monocytes # (Auto) 0.5 K/mm3 (0.0-0.8); Monocytes % (Auto) 6.6 % (0.0-7.3); Platelet Count 418 K/mm3 (140-440); Red Blood Count 3.17 M/mm3 (3.65-5.03); Red Cell Distribution Width 18.6 % (13.2-15.2)
[2019-03-01 06:34] LABS: Mean Corpuscular Volume 66 fl (79-97)
[2019-03-01 06:50] LABS: BUN/Creatinine Ratio 12; Blood Urea Nitrogen 6 mg/dL (7-17); Calcium 8.6 mg/dL (8.4-10.2); Hemolysis Index 0
[2019-03-01 06:56] LABS: INR 1.03 (0.87-1.13)
[2019-03-01] MEDS ORDERED: NACL 0.9% 500 ML 500 ML IV ONE (07:07)
--- NOTE | 2019-03-01 07:25 | Emergency Department Report ---
ED Chest Pain HPI - General Chief Complaint: Chest Pain Stated Complaint: CP/DIZZINESS Time Seen by Provider: 03/01/19 06:06 Source: EMS Mode of arrival: Stretcher Limitations: No Limitations - History of Present Illness Initial Comments: 43-year-old female presents to ED with dizziness and chest pain 1 day. Patient states she feels lightheaded upon sitting up or standing. Reports history of anemia due to fibroids. Patient states she has received transfusions in the past. Patient also reports her blood levels and she experiences chest pain and shortness of breath as she is reporting today. Patient reported some sharp substernal chest pain, nonradiating, nonpleuritic. Denies leg pain or swelling. Patient reports dyspnea on exertion. PCP: none MD Complaint: chest pain -: days(s) (1) Onset: during rest Pain Location: substernal Pain Radiation: none Severity: mild Severity scale (0 -10): 0 Quality: sharp Consistency: constant Improves With: nothing Worsens With: nothing re: dyspnea. denies: nausea, vomting, diaphoresis Other Symptoms: denies: cough, leg swelling - Related Data Previous Rx's Medication Instructions Recorded Last Taken Type Clopidogrel [Plavix] 75 mg PO QDAY #30 tablet 07/15/18 Unknown Rx Famotidine [Pepcid] 20 mg PO BID #60 tablet 07/15/18 Unknown Rx Gabapentin [Neurontin] 300 mg PO BID #60 capsule 07/15/18 Unknown Rx Simvastatin (Nf) [Zocor TAB] 20 mg PO QHS #30 tablet 07/15/18 Unknown Rx Docusate Sodium [Colace] 100 mg PO BID #60 capsule 03/01/19 Unknown Rx Ferrous Sulfate [Feosol 325 MG tab] 325 mg PO TID #90 tablet 03/01/19 Unknown Rx Allergies Allergy/AdvReac Type Severity Reaction Status Date / Time aspirin Allergy Hives Verified 04/22/15 07:02 Heart Score - HEART Score History: Slightly suspicious EKG: Non-specific Age: < 45 Risk factors: 1-2 risk factors Troponin: < normal limit HEART Score: 2 ED Review of Systems ROS: Stated complaint: CP/DIZZINESS Other details as noted in HPI Comment: All other systems reviewed and negative Constitutional: denies: chills, fever Respiratory: SOB with exertion Cardiovascular: chest pain Gastrointestinal: denies: abdominal pain, nausea, vomiting Musculoskeletal: other (denies leg pain or swelling) ED Past Medical Hx - Past Medical History Hx Hypertension: Yes Hx CVA: Yes (TIA) Hx Congestive Heart Failure: No Hx Diabetes: No Hx GERD: Yes Hx Asthma: Yes Hx COPD: No Hx HIV: No - Surgical History Past Surgical History?: Yes Hx Cholecystectomy: Yes Additional Surgical History: csection x 7 - Social History Smoking Status: Never Smoker Substance Use Type: None - Medications Home Medications: Home Medications Medication Instructions Recorded Confirmed Last Taken Type Clopidogrel [Plavix] 75 mg PO QDAY #30 tablet 07/15/18 Unknown Rx Famotidine [Pepcid] 20 mg PO BID #60 tablet 07/15/18 Unknown Rx Gabapentin [Neurontin] 300 mg PO BID #60 capsule 07/15/18 Unknown Rx Simvastatin (Nf) [Zocor TAB] 20 mg PO QHS #30 tablet 07/15/18 Unknown Rx Docusate Sodium [Colace] 100 mg PO BID #60 capsule 03/01/19 Unknown Rx Ferrous Sulfate [Feosol 325 MG tab] 325 mg PO TID #90 tablet 03/01/19 Unknown Rx ED Physical Exam - General Limitations: No Limitations General appearance: alert, in no apparent distress, obese - Head Head exam: Present: atraumatic, normocephalic - Eye Eye exam: Present: normal appearance - ENT ENT exam: Present: mucous membranes moist - Respiratory Respiratory exam: Present: normal lung sounds bilaterally. Absent: respiratory distress - Cardiovascular Cardiovascular Exam: Present: regular rate, normal rhythm - GI/Abdominal GI/Abdominal exam: Present: soft. Absent: distended, tenderness - Extremities Exam Extremities exam: Present: normal inspection. Absent: pedal edema, calf tenderness - Neurological Exam Neurological exam: Present: alert, oriented X3, CN II-XII intact. Absent: motor sensory deficit - Psychiatric Psychiatric exam: Present: normal affect, normal mood - Skin Skin exam: Present: warm, dry, intact, normal color ED Course Vital Signs 03/01/19 03/01/19 03/01/19 05:42 06:08 07:40 Temperature 98.9 F 98.3 F Pulse Rate 86 83 Respiratory 16 15 20 Rate Blood Pressure Blood Pressure 111/71 114/73 [Left] O2 Sat by Pulse 100 100 100 Oximetry 03/01/19 03/01/19 03/01/19 11:32 11:42 12:00 Temperature 98.3 F 98.4 F 98.2 F Pulse Rate 75 82 76 Respiratory 18 16 18 Rate Blood Pressure 111/76 119/71 115/62 Blood Pressure [Left] O2 Sat by Pulse 100 Oximetry 03/01/19 03/01/19 03/01/19 12:17 12:47 13:17 Temperature 98.4 F 98.4 F 98.4 F Pulse Rate 92 H 92 H 75 Respiratory 18 18 18 Rate Blood Pressure 116/68 116/68 114/72 Blood Pressure [Left] O2 Sat by Pulse 100 Oximetry 03/01/19 03/01/19 03/01/19 13:47 14:45 15:30 Temperature 98.4 F 98.2 F 98.4 F Pulse Rate 74 73 80 Respiratory 18 18 18 Rate Blood Pressure 127/77 124/79 112/58 Blood Pressure [Left] O2 Sat by Pulse 100 100 Oximetry 03/01/19 17:11 Temperature 98.4 F Pulse Rate 83 Respiratory Rate Blood Pressure Blood Pressure 111/66 [Left] O2 Sat by Pulse Oximetry ED Medical Decision Making - Lab Data Result diagrams: 03/01/19 15:22 03/01/19 06:09 - EKG Data -: EKG Interpreted by [place] EKG shows normal: sinus rhythm, axis, intervals, QRS complexes, ST-T waves Rate: normal - EKG Data Interpretation: no acute changes - Radiology Data Radiology results: report reviewed, image reviewed - Medical Decision Making 43 yo F w/ symptomatic anemia. Reports current chest pain and SOB same as in the past when her Hb was low. EKG shows no acute ST changes, trop negative x 3. D-dimer negative. CXR unremarkable. Hb 6.0 today. Hx of anemia requiring transfusions due to uterine fibroids. Pt tranfused 1 unit PRBCs. Pt comfortable during ED stay. brought food for her to eat. Will give rx for ferrous sulfate. Advised pt to f/u with [facility] for evaluation of her fibroids. Return precautions given. - Differential Diagnosis symptomatic anemia, ACS, pneumonia, pulm edema Critical Care Time: Yes Critical care time in (mins) excluding proc time.: 35 Critical care attestation.: If time is entered above; I have spent that time in minutes in the direct care of this critically ill patient, excluding procedure time. Critical Care Time: 35 min ED Disposition Clinical Impression: Symptomatic anemia Disposition: DC-01 TO HOME OR SELFCARE Is pt being admited?: No Condition: Stable Instructions: Uterine Fibroids (ED), Iron Rich Diet (ED), Iron Deficiency Anemia (ED) Prescriptions: Docusate Sodium [Colace] 100 mg PO BID #60 capsule Ferrous Sulfate [Feosol 325 MG tab] 325 mg PO TID #90 tablet Referrals: [facility] [Provider Group] - 3-5 Days HOWARD ASIF MD [Staff Physician] - 3-5 Days CHRIS ZAMORA MD [Staff Physician] - 3-5 Days
[2019-03-01] MEDS ORDERED: MORPHINE IV ONE (10:21)
[2019-03-01] MEDS ORDERED: ZOFRAN IV ONE (12:07)
[2019-03-01] MEDS ORDERED: BENADRYL IV ONE (12:28)
[2019-03-01 16:11] LABS: Hemoglobin 7.1 gm/dl (10.1-14.3)
[2019-03-01 16:12] LABS: Hematocrit 24.5 % (30.3-42.9)
[2019-03-01 17:12] VITALS: BP 111/66
== END 2019-03-01 16:35 | disposition home or self-care (01) ==
LOC: ED 05:33
DX: D64.9 Anemia, unspecified (principal); I10 Essential (primary) hypertension; K21.9 Gastro-esophageal reflux disease without esophagitis; J45.909 Unspecified asthma, uncomplicated
CPT/HCPCS: 36415; 36430; 71046; 80048; 84484; 84703; 85014; 85018; 85025; 85379; 85610; 85730; 86850; 86870; 86900; 86901; 86922; 93005; 93010; 96374; 96375; 99291; J1200; J2270; J2405; J7040; P9016

== ENCOUNTER 2019-09-12 17:07 | Inpatient (IN) | payer SELFPAY ==
--- NOTE | 2019-09-12 17:58 | Event Note ---
ED Screening Note ED Screening Note: pt presents with CP that began two days ago feels like a stabbing pain +sob nausea no vomiting LNMP 08/23/19 PMHx asthma, anemia uses albuterol inhaler allergy: aspirin, hives no cardiac hx This initial assessment/diagnostic orders/clinical plan/treatment(s) is/are subject to change based on patients health status, clinical progression and re- assessment by fellow clinical providers in the ED. Further treatment and workup at subsequent clinical providers discretion. Patient/guardian urged not to elope from the ED as their condition may be serious if not clinically assessed and managed. Initial orders include: CP protocol
[2019-09-12] MEDS ORDERED: NITROGLYCERIN 0.4 MG TAB SUBL SL PRN (19:23)
[2019-09-12] MEDS ORDERED: FUROSEMIDE 40 MG/4 ML INJ IV ONE (19:23)
[2019-09-12 19:42] LABS: Basophils # (Auto) 0.1 K/mm3 (0.0-0.1); Basophils % (Auto) 0.7 % (0.0-1.8); Eosinophils # (Auto) 0.1 K/mm3 (0.0-0.4); Eosinophils % (Auto) 1.1 % (0.0-4.3); Hematocrit 23.4 % (30.3-42.9); Hemoglobin 6.9 gm/dl (10.1-14.3); Lymphocytes # (Auto) 1.8 K/mm3 (1.2-5.4); Lymphocytes % (Auto) 25.1 % (13.4-35.0); Mean Corpuscular HGB Conc 30 % (30-34); Mean Corpuscular Volume 73 fl (79-97); Monocytes # (Auto) 0.4 K/mm3 (0.0-0.8); Monocytes % (Auto) 5.5 % (0.0-7.3); Platelet Count 416 K/mm3 (140-440); Red Blood Count 3.22 M/mm3 (3.65-5.03); Red Cell Distribution Width 19.8 % (13.2-15.2)
--- NOTE | 2019-09-12 19:44 | Emergency Department Report ---
ED Chest Pain HPI - General Chief Complaint: Chest Pain Stated Complaint: SOB/DIZZY/BODY SWELLING/PAIN Time Seen by Provider: 09/12/19 17:56 Source: patient Mode of arrival: Ambulatory Limitations: No Limitations - History of Present Illness Initial Comments: Patient is a 44-year-old -[place] female with a history of chronic anemia, GERD, HTN and asthma who presents to the ED with complaint of acute onset persistent substernal chest pain with shortness of breath and bilateral lower extremity pitting edema for the last 3 days. Patient states that the shortness of breath is worse even when she walks a few steps from her bedroom to the bathroom. Patient states that in the last 1 week she has not been able to sleep on her bed but does sleep on the couch upright because of worsening shortness of breath. Patient also states that the last 3 days she has had bilateral lower extremity pitting edema with generalized weakness. Patient denies fever, chills, cough, dizziness, syncope, palpitations, nausea, vomiting, diarrhea, abdominal pain, hematuria, urinary frequency and urgency or change in vision and headache. MD Complaint: chest pain, other (shortness of breath, generalized weakness, bilateral LE pitting edema) -: Sudden, days(s) (3) Onset: during rest, during exertion Pain Location: substernal Pain Radiation: none Severity: severe Severity scale (0 -10): 7 Quality: tightness, heaviness, sharp, pressure Consistency: constant Improves With: nothing Worsens With: exertion, supine, movement Context: other (Spontaneous) re: dyspnea Other Symptoms: leg swelling Treatments Prior to Arrival: none Aspirin use within the Past 7 Days: (0) No - Related Data On Oral Contraceptives: No Previous Rx's Medication Instructions Recorded Last Taken Type Clopidogrel [Plavix] 75 mg PO QDAY #30 tablet 07/15/18 Unknown Rx Famotidine [Pepcid] 20 mg PO BID #60 tablet 07/15/18 Unknown Rx Gabapentin 300 mg PO BID #60 capsule 07/15/18 Unknown Rx Simvastatin (Nf) [Zocor TAB] 20 mg PO QHS #30 tablet 07/15/18 Unknown Rx Docusate Sodium [Colace] 100 mg PO BID #60 capsule 03/01/19 Unknown Rx Ferrous Sulfate [Feosol 325 MG tab] 325 mg PO TID #90 tablet 03/01/19 Unknown Rx Allergies Allergy/AdvReac Type Severity Reaction Status Date / Time aspirin Allergy Hives Verified 09/12/19 17:08 Heart Score - HEART Score History: Slightly suspicious EKG: Normal Age: < 45 Risk factors: 1-2 risk factors Troponin: < normal limit HEART Score: 1 - Critical Actions Critical Actions: 0-3 pts:0.9-1.7%risk of adverse cardiac event.Candidate for discharge ED Review of Systems ROS: Stated complaint: SOB/DIZZY/BODY SWELLING/PAIN Other details as noted in HPI Comment: All other systems reviewed and negative Constitutional: malaise, weakness. denies: chills, fever Eyes: denies: eye pain, eye discharge, vision change ENT: denies: ear pain, throat pain Respiratory: orthopnea, shortness of breath, SOB with exertion, SOB at rest. denies: cough, wheezing Cardiovascular: chest pain, dyspnea on exertion, orthopnea, edema (bilateral LE). denies: palpitations Endocrine: no symptoms reported Gastrointestinal: denies: abdominal pain, nausea, vomiting, diarrhea Genitourinary: denies: urgency, dysuria, frequency, hematuria, discharge Musculoskeletal: myalgia. denies: back pain, joint swelling, arthralgia Skin: denies: rash, lesions, change in color, change in hair/nails Neurological: denies: headache, weakness, paresthesias Psychiatric: denies: anxiety, depression Hematological/Lymphatic: denies: easy bleeding, easy bruising ED Past Medical Hx - Past Medical History Hx Hypertension: Yes Hx CVA: Yes (TIA) Hx Congestive Heart Failure: No Hx Diabetes: No Hx GERD: Yes Hx Asthma: Yes Hx COPD: No Hx HIV: No - Surgical History Hx Cholecystectomy: Yes Additional Surgical History: csection x 7 - Social History Smoking Status: Never Smoker Substance Use Type: None - Medications Home Medications: Home Medications Medication Instructions Recorded Confirmed Last Taken Type Clopidogrel [Plavix] 75 mg PO QDAY #30 tablet 07/15/18 Unknown Rx Famotidine [Pepcid] 20 mg PO BID #60 tablet 07/15/18 Unknown Rx Gabapentin 300 mg PO BID #60 capsule 07/15/18 Unknown Rx Simvastatin (Nf) [Zocor TAB] 20 mg PO QHS #30 tablet 07/15/18 Unknown Rx Docusate Sodium [Colace] 100 mg PO BID #60 capsule 03/01/19 Unknown Rx Ferrous Sulfate [Feosol 325 MG tab] 325 mg PO TID #90 tablet 03/01/19 Unknown Rx ED Physical Exam - General Limitations: No Limitations General appearance: alert, in no apparent distress - Head Head exam: Present: atraumatic, normocephalic, normal inspection - Eye Eye exam: Present: normal appearance, PERRL, EOMI Pupils: Present: normal accommodation - ENT ENT exam: Present: normal exam, normal orophraynx, mucous membranes moist, TM's normal bilaterally, normal external ear exam - Neck Neck exam: Present: normal inspection, full ROM. Absent: tenderness - Respiratory Respiratory exam: Present: normal lung sounds bilaterally. Absent: respiratory distress, wheezes, rales, rhonchi, stridor, chest wall tenderness, accessory muscle use, decreased breath sounds, prolonged expiratory - Cardiovascular Cardiovascular Exam: Present: regular rate, normal rhythm, normal heart sounds. Absent: systolic murmur, diastolic murmur, rubs, gallop - GI/Abdominal GI/Abdominal exam: Present: soft, normal bowel sounds. Absent: distended, tenderness, guarding, hyperactive bowel sounds, hypoactive bowel sounds - Extremities Exam Extremities exam: Present: normal inspection, full ROM, tenderness, normal capillary refill, pedal edema (Bilateral pitting LE 3+ edema), joint swelling, other (Bilateral LE pitting 3+ edema) - Back Exam Back exam: Present: normal inspection, full ROM. Absent: tenderness, CVA t enderness (L), muscle spasm, paraspinal tenderness, vertebral tenderness - Neurological Exam Neurological exam: Present: alert, oriented X3, CN II-XII intact, normal gait, reflexes normal - Psychiatric Psychiatric exam: Present: normal affect, normal mood - Skin Skin exam: Present: warm, dry, intact, normal color. Absent: rash ED Course Vital Signs 09/12/19 09/12/19 17:57 21:06 Temperature 98.3 F Pulse Rate 98 H 84 Respiratory 18 14 Rate Blood Pressure 129/84 Blood Pressure 142/91 [Left] O2 Sat by Pulse 98 100 Oximetry HALLE score - Halle Score Age > 65: (0) No Aspirin use within the Past 7 Days: (0) No 3 or more CAD Risk Factors: (0) No 2 or more Angina events in past 24 hrs: (0) No Known CAD with more than 50% Stenosis: (0) No Elevated Cardiac Markers: (0) No ST Deviation Greater than 0.5mm: (0) No HALLE Score: 0 ED Medical Decision Making - Lab Data Result diagrams: 09/12/19 19:09 09/12/19 19:09 - EKG Data EKG shows normal: sinus rhythm Rate: normal - EKG Data Interpretation: normal EKG 09/12/19 19:50 EKG shows normal sinus rhythm with ventricular rate of 91 bpm, and no ST or T- wave abnormalities. - Radiology Data Radiology results: report reviewed, image reviewed Chest x-ray shows no acute pulmonary abnormalities or pneumonitis. Chest CTA shows no evidence of PE or any cardiopulmonary abnormalities or pneumonitis. - Medical Decision Making This is a 44-year-old female who presented to the ED with persistent chest pain and shortness of breath for 3 days worse the last 12 hours. In the ED, patient is alert and oriented 3 and is not in distress but appears to be in pain. Lab test results were reviewed and show baseline chronic anemia with an H&H of 6.9 and 23.4. The rest of the lab test results including troponin levels are unremarkable. Patient was treated for pain in the ED with nitroglycerin and also given Lasix 40 mg IV 1. EKG shows normal sinus rhythm with ventricular rate of [address] or T-wave abnormalities. On reevaluation, patient still complains of pain in the chest that she states radiates to her epigastric area and posterior thoracic area. Patient's case was discussed with the ED attending physician Dr. Mackenzie who advised that the patient be admitted to the [facility] for further evaluation. Patient's case was discussed with Dr. Gonzalez, the Hospitalist Physician conference coordinator who admitted the patient to the hospital. - Differential Diagnosis CHF, CAD, NSTEMI; ARF, ASTHMA; PE Critical Care Time: Yes Critical care time in (mins) excluding proc time.: 45 Critical care attestation.: If time is entered above; I have spent that time in minutes in the direct care o f this critically ill patient, excluding procedure time. Critical Care Time: 45 MINUTES ED Disposition Clinical Impression: Chest pain in adult, Dyspnea on exertion, Chronic iron deficiency anemia Pain and swelling of lower leg Qualifiers: Laterality: unspecified laterality Qualified Code(s): M79.669 - Pain in unspecified lower leg; M79.89 - Other specified soft tissue disorders Disposition: DC-09 OP ADMIT IP TO THIS HOSP Is pt being admited?: Yes Does the pt Need Aspirin: No Condition: Stable Instructions: Chest Pain (ED) Referrals: PRIMARY CARE, [Primary Care Provider] - 3-5 Days Time of Disposition: 21:47 Print Language: J[place]
[2019-09-12 19:48] LABS: Alanine Aminotransferase 5 units/L (7-56); Albumin 3.5 g/dL (3.9-5); BUN/Creatinine Ratio 20; Blood Urea Nitrogen 8 mg/dL (7-17); Calcium 8.5 mg/dL (8.4-10.2); Hemolysis Index 1
[2019-09-12 19:56] LABS: INR 1.12 (0.87-1.13)
[2019-09-12 19:57] LABS: Partial Thromboplastin Time 30.8 Sec. (24.2-36.6)
--- NOTE | 2019-09-12 20:32 | XRay Report ---
CHEST 2 VIEWS INDICATION / CLINICAL INFORMATION: Chest pain. COMPARISON: Two-view chest 03/01/2019 FINDINGS: SUPPORT DEVICES: None. HEART / MEDIASTINUM: No significant abnormality. LUNGS / PLEURA: No significant pulmonary or pleural abnormality. No pneumothorax. ADDITIONAL FINDINGS: No significant additional findings. IMPRESSION: 1. No acute finding. No significant change. Signer Name: Brian Galan MD Signed: 09/12/2019 8:27 PM Workstation Name: [id number]
[2019-09-12] MEDS ORDERED: HYDROcodone/ACETAMINOPHEN 5-325 MG TAB PO ONE (21:25)
--- NOTE | 2019-09-12 23:08 | Cat Scan Report ---
CTA CHEST WITH IV CONTRAST INDICATION: dyspnea, leg pain, chest pain. TECHNIQUE: Axial CT images were obtained through the chest after injection of 100 mL Omnipaque 350 IV contrast. 3 plane MIP reconstructions were produced. All CT scans at this location are performed using CT dose reduction for ALARA by means of automated exposure control. COMPARISON: One view of the chest from earlier today. FINDINGS: PULMONARY ARTERIES: Well-opacified without distinct from emboli. AORTA AND ARTERIES: No significant abnormality. MEDIASTINUM: No significant abnormality of the heart. No mass, lymphadenopathy or other significant a bnormality. LUNGS: No suspicious consolidation, nodule or mass. No pneumothorax or pleural effusion. ADDITIONAL FINDINGS: None. UPPER ABDOMEN: No acute findings. BONES: No significant osseous abnormality. IMPRESSION: 1. No CT evidence for pulmonary embolism. 2. No acute findings. Signer Name: Manuelito Cerrato MD Signed: 09/12/2019 11:04 PM Workstation Name: [id number]
[2019-09-13] MEDS ORDERED: ASPIRIN 81 MG TAB CHEW ONE (00:03)
[2019-09-13] MEDS ORDERED: ACETAMINOPHEN 325 MG TAB PO PRN (00:31)
[2019-09-13] MEDS ORDERED: MORPHINE 2 MG/1 ML INJ IV PRN (00:31)
[2019-09-13] MEDS ORDERED: ALBUTEROL 2.5 MG/3 ML NEBU IH PRN (00:31)
--- NOTE | 2019-09-13 00:58 | History and Physical Report ---
<PATRICIO AVILA - Last Filed: 09/13/19 01:00> History of Present Illness Date of examination: 09/13/19 Date of admission: 09/13/2019 Chief complaint: chest pain, sob History of present illness: 44-year-old -Maltese female with history of hypertension, TIA, GERD, and asthma who presents to [facility] ED with complaints of chest pain, sob and dyspnea on exertion for the past week. Pt states that she has been experiencing substernal chest pain with radiation to left and right chest, back and BLE for the past week. Her pain is accompanied by SOB. During the past 3 days her SOB has worsened. She is unable to walk 5 steps without becoming SOB. Furthermore, pt is unable to lay flat and has to sleep sitting up in chair. Pt also complains of BLE edema with generalized weakness. Pt admits to be noncompliant with meds. Sh e admits to nausea. She denies emesis, cough, hemoptysis, fever, headache, visual disturbances, or syncope. She denies previous cardiac workup. Past History Past Medical History: GERD, hypertension, other (obesity, TIA, Asthma) Past Surgical History: cholecystectomy, (x7) Social history: lives with family, full code. denies: smoking Family history: no significant family history Medications and Allergies Allergies Allergy/AdvReac Type Severity Reaction Status Date / Time aspirin Allergy Hives Verified 09/12/19 17:08 Home Medications Medication Instructions Recorded Confirmed Last Taken Type Clopidogrel [Plavix] 75 mg PO QDAY #30 tablet 07/15/18 Unknown Rx Famotidine [Pepcid] 20 mg PO BID #60 tablet 07/15/18 Unknown Rx Gabapentin 300 mg PO BID #60 capsule 07/15/18 Unknown Rx Simvastatin (Nf) [Zocor TAB] 20 mg PO QHS #30 tablet 07/15/18 Unknown Rx Docusate Sodium [Colace] 100 mg PO BID #60 capsule 03/01/19 Unknown Rx Ferrous Sulfate [Feosol 325 MG tab] 325 mg PO TID #90 tablet 03/01/19 Unknown Rx Active Meds: Active Medications Acetaminophen (Tylenol) 650 mg PO Q4H PRN PRN Reason: Pain MILD(1-3)/Fever >100.5/[place] Albuterol (Proventil) 2.5 mg IH Q3HRT PRN PRN Reason: Shortness Of Breath Atorvastatin Calcium (Lipitor) 20 mg PO QHS [facility] Clopidogrel Bisulfate (Plavix) 75 mg PO QDAY [facility] Docusate Sodium (Colace) 100 mg PO BID [facility] Heparin Sodium (Porcine) (Heparin) 5,000 unit SUB-Q Q12HR [facility] Morphine Sulfate (Morphine) 2 mg IV Q4H PRN PRN Reason: Pain, Moderate (4-6) Nitroglycerin (Nitrostat) 0.4 mg SL .Q5MIN PRN PRN Reason: Chest Pain Ondansetron HCl (Zofran) 4 mg IV Q8H PRN PRN Reason: Nausea And Vomiting Pantoprazole Sodium (Protonix) 40 mg PO QDAY [facility] Sodium Chloride (Sodium Chloride Flush Syringe 10 Ml) 10 ml IV BID [facility] Sodium Chloride (Sodium Chloride Flush Syringe 10 Ml) 10 ml IV PRN PRN PRN Reason: LINE FLUSH Review of Systems All systems: negative Constitutional: weakness Cardiovascular: chest pain, orthopnea, shortness of breath, dyspnea on exertion (and chest tightness), leg edema Respiratory: shortness of breath, dyspnea on exertion Exam - Physical Exam Narrative exam: Physical exam General appearance: Present: No acute distress, alert and oriented 3, obese, well-developed, adult female - EENT Eyes: Present: PERRL, EOM intact ENT: hearing intact, normal dentition - Neck Neck: Present: supple, normal ROM - Respiratory Respiratory effort: Non-labored Respiratory: Clear throughout - Cardiovascular Heart rate: 91 (bpm) Rhythm: Sinus rhythm Heart Sounds: Present: S1 & S2. Absent: rub, click - Extremities Extremities: no ischemia, pulses intact, bilateral lower extremity trace edema - Peripheral Assessment Peripheral Pulses: within normal limits - Abdominal General gastrointestinal: soft, non-tender, normal bowel sounds - Integumentary Integumentary: Present: warm, dry - Musculoskeletal Musculoskeletal: Able to move all extremities -Neurological Neurological: CN II-XII intact - Psychiatric Psychiatric: cooperative - Constitutional Vitals: Temp Pulse Resp BP Pulse Ox 98.3 F 84 14 142/91 100 09/12/19 17:57 09/12/19 21:06 09/12/19 21:06 09/12/19 21:06 09/12/19 21:06 Results - Labs CBC & Chem 7: 09/12/19 19:09 09/12/19 19:09 Labs: Laboratory Last Values WBC 7.2 K/mm3 (4.5-11.0) 09/12/19 19:09 RBC 3.22 M/mm3 (3.65-5.03) L 09/12/19 19:09 Hgb 6.9 gm/dl (10.1-14.3) L 09/12/19 19:09 Hct 23.4 % (30.3-42.9) L 09/12/19 19:09 MCV 73 fl (79-97) L 09/12/19 19:09 MCH 22 pg (28-32) L 09/12/19 19:09 MCHC 30 % (30-34) 09/12/19 19:09 RDW 19.8 % (13.2-15.2) H 09/12/19 19:09 Plt Count 416 K/mm3 (140-440) 09/12/19 19:09 Lymph % (Auto) 25.1 % (13.4-35.0) 09/12/19 19:09 [place] % (Auto) 5.5 % (0.0-7.3) 09/12/19 19:09 Eos % (Auto) 1.1 % (0.0-4.3) 09/12/19 19:09 Baso % (Auto) 0.7 % (0.0-1.8) 09/12/19 19:09 Lymph # 1.8 K/mm3 (1.2-5.4) 09/12/19 19:09 [place] # 0.4 K/mm3 (0.0-0.8) 09/12/19 19:09 Eos # 0.1 K/mm3 (0.0-0.4) 09/12/19 19:09 Baso # 0.1 K/mm3 (0.0-0.1) 09/12/19 19:09 Seg Neutrophils % 67.6 % (40.0-70.0) 09/12/19 19:09 Seg Neutrophils # 4.9 K/mm3 (1.8-7.7) 09/12/19 19:09 PT 14.3 Sec. (12.2-14.9) 09/12/19 19:34 INR 1.12 (0.87-1.13) 09/12/19 19:34 APTT 30.8 Sec. (24.2-36.6) 09/12/19 19:34 Sodium 136 mmol/L (137-145) L 09/12/19 19:09 Potassium 3.6 mmol/L (3.6-5.0) 09/12/19 19:09 Chloride 107.2 mmol/L (98-107) H 09/12/19 19:09 Carbon Dioxide 19 mmol/L (22-30) L 09/12/19 19:09 Anion Gap 13 mmol/L 09/12/19 19:09 BUN 8 mg/dL (7-17) 09/12/19 19:09 Creatinine 0.4 mg/dL (0.7-1.2) L 09/12/19 19:09 Estimated GFR > 60 ml/min 09/12/19 19:09 BUN/Creatinine Ratio 20 % 09/12/19 19:09 Glucose 82 mg/dL (65-100) 09/12/19 19:09 Calcium 8.5 mg/dL (8.4-10.2) 09/12/19 19:09 Total Bilirubin 0.40 mg/dL (0.1-1.2) 09/12/19 19:09 AST 12 units/L (5-40) 09/12/19 19:09 ALT 5 units/L (7-56) L 09/12/19 19:09 Alkaline Phosphatase 62 units/L (35-129) 09/12/19 19:09 Troponin T < 0.010 ng/mL (0.00-0.029) 09/12/19 20:59 NT-Pro-B Natriuret Pep 15.79 pg/mL (0-450) 09/12/19 19:09 Total Protein 8.3 g/dL (6.3-8.2) H 09/12/19 19:09 Albumin 3.5 g/dL (3.9-5) L 09/12/19 19:09 Albumin/Globulin Ratio 0.7 % 09/12/19 19:09 HCG, Qual Negative (Negative) 09/12/19 19:09 - Imaging and Cardiology Imaging and Cardiology: CXR: FINDINGS: SUPPORT DEVICES: None. HEART / MEDIASTINUM: No significant abnormality. LUNGS / PLEURA: No significant pulmonary or pleural abnormality. No pneumothorax. ADDITIONAL FINDINGS: No significant additional findings. IMPRESSION: 1. No acute finding. No significant change. CT angio Chest: FINDINGS: PULMONARY ARTERIES: Well-opacified without distinct from emboli. AORTA AND ARTERIES: No significant abnormality. MEDIASTINUM: No significant abnormality of the heart. No mass, lymphadenopathy or other significant abnormality. LUNGS: No suspicious consolidation, nodule or mass. No pneumothorax or pleural effusion. ADDITIONAL FINDINGS: None. UPPER ABDOMEN: No acute findings. BONES: No significant osseous abnormality. IMPRESSION: 1. No CT evidence for pulmonary embolism. 2. No acute findings. Assessment and Plan Assessment and plan: 44-year-old -Maltese female with history of hypertension, TIA, GERD, and asthma who presents to [facility] ED with complaints of chest pain, sob and dyspnea on exertion for the past week. Pt states that she has been experiencing substernal chest pain with radiation to left and right chest, back and BLE for the past week. At the time of my examination pt is sitting up in stretcher with no s/s of distress. She is able to talk in complete sentences and has a saturation of 99% on RA. Will admit for further evaluation and treatment. Acute Chest Pain R/O ACS -Initiate chest pain protocol -Continuous telemetry monitoring -Continue supportive care -Pain mgmt -Troponin negative x 2 -EKG unrevealing for acute ischemic abnormalities -CXR unremarkable -Lexiscan pending -On Plavix and Statin Anemia -Hemoglobin on admission 6.9 -Hx chronic anemia -No s/s of bleeding -1U PRBC ordered; transfusion pending -Continue to monitor hemoglobin -Transfuse as needed Dyspnea on Exertion -O2 sat 98-100% on RA -Hx Asthma -CT angio Chest negative for PE -Likely secondary to anemia, abdominal obesity/ Pulmonary disease -ProBNP WNL -Albuterol prn -Continue supportive care HTN -Hx of HTN non-compliant with meds -Monitor BP -Resume home hypertensive meds once medication home meds have been reconciled -IV hydralazine when necessary Morbid Obesity -BMI 51.2kg -Diet and lifestyle modifications -May benefit from OP weight mgmt program Hx Asthma -Albuterol prn DVT PPX -on Heparin Advance Directives: No VTE prophylaxis?: Chemical Plan of care discussed with patient/family: Yes <LIGIA BACH - Last Filed: 09/13/19 04:35> History of Present Illness Date of admission: 09/13/19 00:31 Medications and Allergies Active Meds: Active Medications Acetaminophen (Tylenol) 650 mg PO Q4H PRN PRN Reason: Pain MILD(1-3)/Fever >100.5/[place] Albuterol (Proventil) 2.5 mg IH Q3HRT PRN PRN Reason: Shortness Of Breath Atorvastatin Calcium (Lipitor) 20 mg PO QHS [facility] Clopidogrel Bisulfate (Plavix) 75 mg PO QDAY [facility] Docusate Sodium (Colace) 100 mg PO BID [facility] Heparin Sodium (Porcine) (Heparin) 5,000 unit SUB-Q Q12HR [facility] Morphine Sulfate (Morphine) 2 mg IV Q4H PRN PRN Reason: Pain, Moderate (4-6) Nitroglycerin (Nitrostat) 0.4 mg SL .Q5MIN PRN PRN Reason: Chest Pain Ondansetron HCl (Zofran) 4 mg IV Q8H PRN PRN Reason: Nausea And Vomiting Pantoprazole Sodium (Protonix) 40 mg PO QDAY [facility] Sodium Chloride (Sodium Chloride Flush Syringe 10 Ml) 10 ml IV BID [facility] Sodium Chloride (Sodium Chloride Flush Syringe 10 Ml) 10 ml IV PRN PRN PRN Reason: LINE FLUSH Exam - Constitutional Vitals: Temp Pulse Resp BP Pulse Ox 98.4 F 71 18 127/76 100 09/13/19 02:30 09/13/19 02:30 09/13/19 02:30 09/13/19 02:30 09/13/19 02:30 Results - Labs CBC & Chem 7: 09/12/19 19:09 09/12/19 19:09 Labs: Laboratory Last Values WBC 7.2 K/mm3 (4.5-11.0) 09/12/19 19:09 RBC 3.22 M/mm3 (3.65-5.03) L 09/12/19 19:09 Hgb 6.9 gm/dl (10.1-14.3) L 09/12/19 19:09 Hct 23.4 % (30.3-42.9) L 09/12/19 19:09 MCV 73 fl (79-97) L 09/12/19 19:09 MCH 22 pg (28-32) L 09/12/19 19:09 MCHC 30 % (30-34) 09/12/19 19:09 RDW 19.8 % (13.2-15.2) H 09/12/19 19:09 Plt Count 416 K/mm3 (140-440) 09/12/19 19:09 Lymph % (Auto) 25.1 % (13.4-35.0) 09/12/19 19:09 [place] % (Auto) 5.5 % (0.0-7.3) 09/12/19 19:09 Eos % (Auto) 1.1 % (0.0-4.3) 09/12/19 19:09 Baso % (Auto) 0.7 % (0.0-1.8) 09/12/19 19:09 Lymph # 1.8 K/mm3 (1.2-5.4) 09/12/19 19:09 [place] # 0.4 K/mm3 (0.0-0.8) 09/12/19 19:09 Eos # 0.1 K/mm3 (0.0-0.4) 09/12/19 19:09 Baso # 0.1 K/mm3 (0.0-0.1) 09/12/19 19:09 Seg Neutrophils % 67.6 % (40.0-70.0) 09/12/19 19:09 Seg Neutrophils # 4.9 K/mm3 (1.8-7.7) 09/12/19 19:09 PT 14.3 Sec. (12.2-14.9) 09/12/19 19:34 INR 1.12 (0.87-1.13) 09/12/19 19:34 APTT 30.8 Sec. (24.2-36.6) 09/12/19 19:34 Sodium 136 mmol/L (137-145) L 09/12/19 19:09 Potassium 3.6 mmol/L (3.6-5.0) 09/12/19 19:09 Chloride 107.2 mmol/L (98-107) H 09/12/19 19:09 Carbon Dioxide 19 mmol/L (22-30) L 09/12/19 19:09 Anion Gap 13 mmol/L 09/12/19 19:09 BUN 8 mg/dL (7-17) 09/12/19 19:09 Creatinine 0.4 mg/dL (0.7-1.2) L 09/12/19 19:09 Estimated GFR > 60 ml/min 09/12/19 19:09 BUN/Creatinine Ratio 20 % 09/12/19 19:09 Glucose 82 mg/dL (65-100) 09/12/19 19:09 Calcium 8.5 mg/dL (8.4-10.2) 09/12/19 19:09 Total Bilirubin 0.40 mg/dL (0.1-1.2) 09/12/19 19:09 AST 12 units/L (5-40) 09/12/19 19:09 ALT 5 units/L (7-56) L 09/12/19 19:09 Alkaline Phosphatase 62 units/L (35-129) 09/12/19 19:09 Troponin T < 0.010 ng/mL (0.00-0.029) 09/12/19 20:59 NT-Pro-B Natriuret Pep 15.79 pg/mL (0-450) 09/12/19 19:09 Total Protein 8.3 g/dL (6.3-8.2) H 09/12/19 19:09 Albumin 3.5 g/dL (3.9-5) L 09/12/19 19:09 Albumin/Globulin Ratio 0.7 % 09/12/19 19:09 Triglycerides 46 mg/dL (2-149) 09/13/19 01:45 Cholesterol 113 mg/dL (50-199) 09/13/19 01:45 LDL Cholesterol Direct 58 mg/dL (50-130) 09/13/19 01:45 HDL Cholesterol 57 mg/dL (40-59) 09/13/19 01:45 Cholesterol/HDL Ratio 1.98 % 09/13/19 01:45 HCG, Qual Negative (Negative) 09/12/19 19:09 Urine Color Colorless (Yellow) 09/13/19 01:52 Urine Turbidity Clear (Clear) 09/13/19 01:52 Urine pH 6.0 (5.0-7.0) 09/13/19 01:52 Ur Specific [place] 1.019 (1.003-1.030) 09/13/19 01:52 Urine Protein <15 mg/dl mg/dL (Negative) 09/13/19 01:52 Urine Glucose (UA) Neg mg/dL (Negative) 09/13/19 01:52 Urine Ketones Neg mg/dL (Negative) 09/13/19 01:52 Urine Blood Sm (Negative) 09/13/19 01:52 Urine Nitrite Neg (Negative) 09/13/19 01:52 Urine Bilirubin Neg (Negative) 09/13/19 01:52 Urine Urobilinogen < 2.0 mg/dL (<2.0) 09/13/19 01:52 Ur Leukocyte Esterase Neg (Negative) 09/13/19 01:52 Urine WBC (Auto) 0.0 /HPF (0.0-6.0) 09/13/19 01:52 Urine RBC (Auto) 1.0 /HPF (0.0-6.0) 09/13/19 01:52 Assessment and Plan Assessment and plan: 44-year-old woman with a history of hypertension,, GERD, asthma chronic anemia comes emergency room with complaints of chest pain, shortness of breath. Hemoglobin found to be 6.9. Agree with transfusion of packed red blood cells, patient is low risk for acute coronary syndrome, will DC Plavix and heparin given anemia. Other plan as stated above
[2019-09-13 03:01] LABS: Chol/HDL Ratio 1.98 %
[2019-09-13 03:14] LABS: Bilirubin,Urine NEG (Negative); Blood,Urine SM (Negative); Color,Urine Colorless (Yellow); Protein,Urine <15 mg/dL mg/dL (Negative); Urobilinogen,Urine < 2.0 mg/dL (<2.0)
[2019-09-13] MEDS ORDERED: SODIUM CHLORIDE 0.9% 500 ML 500 ML IV ONE ×2 (04:30→13:00)
[2019-09-13] MEDS ORDERED: REGADENOSON 0.4 MG/5 ML INJ IV ONE (08:22)
--- NOTE | 2019-09-13 08:58 | Discharge Summary ---
Providers - Providers Date of Admission: 09/13/19 00:31 Date of discharge: 09/13/19 Attending physician: JAYASHREE SOUSA 09/13/19 Consult to Cardiac Rehabilitation [CONS] Routine Reason For Exam: Phase I Primary care physician: DIRECTOR DATA ARCHITECTURE Hospitalization Condition: Stable Hospital course: Patient is a 44-year-old -Indian female with history of hypertension, TIA, GERD, and asthma who presents to [facility] ED with complaints of chest pain, sob and dyspnea on exertion for the past week. Pt states that she has been experiencing substernal chest pain with radiation to left and right chest, back and BLE for the past week. Her pain is accompanied by SOB. During the past 3 days her SOB has worsened. She is unable to walk 5 steps without becoming SOB. Furthermore, pt is unable to lay flat and has to sleep sitting up in chair. Pt also complains of BLE edema with generalized weakness. Pt admits to be noncompliant with meds. She admits to nausea. She denies emesis, cough, hemoptysis, fever, headache, visual disturbances, or syncope. She denies previous cardiac workup. * CXR IMPRESSION: 1. No acute finding. No significant change. * CT angio Chest IMPRESSION: 1. No CT evidence for pulmonary embolism. 2. No acute findings. Acute Chest Pain R/O ACS -Initiate chest pain protocol -Continuous telemetry monitoring -Continue supportive care -Pain mgmt -Troponin negative x 2 -EKG unrevealing for acute ischemic abnormalities -CXR unremarkable -Lexiscan pending -On Plavix and Statin Anemia -Hemoglobin on admission 6.9 -Hx chronic anemia -No s/s of bleeding -1U PRBC ordered; transfusion pending -Continue to monitor hemoglobin -Transfuse as needed Dyspnea on Exertion -O2 sat 98-100% on RA -Hx Asthma -CT angio Chest negative for PE -Likely secondary to anemia, abdominal obesity/ Pulmonary disease -ProBNP WNL -Albuterol prn -Continue supportive care HTN -Hx of HTN non-compliant with meds -Monitor BP -Resume home hypertensive meds once medication home meds have been reconciled -IV hydralazine when necessary Morbid Obesity -BMI 51.2kg -Diet and lifestyle modifications -May benefit from OP weight mgmt program Hx Asthma -Albuterol prn DVT PPX -scd due to anemia CTA heart negative Disposition: DC-01 TO HOME OR SELFCARE Time spent for discharge: 31 min Core Measure Documentation - Palliative Care Palliative Care/ Comfort Measures: Not Applicable - Core Measures Any of the following diagnoses?: none - VTE Discharge Requirements Deep Vein Thrombosis/Pulmonary Embolism Present on Admission: No Has pt received <5 days of overlap therapy or INR<2.0: No Anticoagulant overlap therapy prescribed at discharge: No Contraindication No Overlap Therapy order at DC: Not Indicated Exam - Physical Exam Narrative exam: Gen: WDWN, NAD, Awake, Alert, Orientated HEENT: NCAT, EOMI, PERRL, OP Clear Neck: supple, no adenopathy, no thyromegaly, no JVD CVS/Heart: RRR, normal S1S2, pulses present bilaterally Chest/Lungs: CTA B, Symmetrical chest expansion, good air entry bilaterally GI/Abdomen: soft, NTND, good bowel sounds, no guarding or rebound /Bladder: no suprapubic tenderness, no CVA or paraspinal tenderness Extermity/Skin: no c/c/e, no obvious rash MSK: FROM x 4 Neuro: CN 2-12 grossly intact, no new focal deficits Psych: calm - Constitutional Vitals: Temp Pulse Resp BP Pulse Ox 97.5 F L 88 18 121/71 98 09/13/19 04:20 09/13/19 04:20 09/13/19 04:20 09/13/19 04:20 09/13/19 04:20 Plan Activity: other (no strenous activity unless cleared by pcp) Diet: low salt Follow up with: ADIEL MIJARES MD [Staff Physician] - 7 Days PRIMARY CARE, [Primary Care Provider] - 3-5 Days Prescriptions: AtorvaSTATin [Lipitor] 20 mg PO QHS #30 tablet ALBUTEROL NEB's [Proventil 0.083% NEBS] 2.5 mg IH Q3HRT PRN #15 nebu PRN Reason: Shortness Of Breath
--- NOTE | 2019-09-13 09:02 | Progress Note ---
Assessment and Plan Assessment and plan: Patient is a 44-year-old -[place]rist[place] female with history of hypertension, TIA, GERD, and asthma who presents to [facility] ED with complaints of chest pain, sob and dyspnea on exertion for the past week. Pt states that she has been experiencing substernal chest pain with radiation to left and right chest, back and BLE for the past week. Her pain is accompanied by SOB. During the past 3 days her SOB has worsened. She is unable to walk 5 steps without becoming SOB. Furthermore, pt is unable to lay flat and has to sleep sitting up in chair. Pt also complains of BLE edema with generalized weakness. Pt admits to be noncompliant with meds. She admits to nausea. She denies emesis, cough, hemoptysis, fever, headache, visual disturbances, or syncope. She denies previous cardiac workup. * CXR IMPRESSION: 1. No acute finding. No significant change. * CT angio Chest IMPRESSION: 1. No CT evidence for pulmonary embolism. 2. No acute findings. Acute Chest Pain R/O ACS -Initiate chest pain protocol -Continuous telemetry monitoring -Continue supportive care -Pain mgmt -Troponin negative x 2 -EKG unrevealing for acute ischemic abnormalities -CXR unremarkable -Lexiscan pending -On Plavix and Statin Anemia -Hemoglobin on admission 6.9 -Hx chronic anemia -No s/s of bleeding -1U PRBC ordered; transfusion pending -Continue to monitor hemoglobin -Transfuse as needed Dyspnea on Exertion -O2 sat 98-100% on RA -Hx Asthma -CT angio Chest negative for PE -Likely secondary to anemia, abdominal obesity/ Pulmonary disease -ProBNP WNL -Albuterol prn -Continue supportive care HTN -Hx of HTN non-compliant with meds -Monitor BP -Resume home hypertensive meds once medication home meds have been reconciled -IV hydralazine when necessary Morbid Obesity -BMI 51.2kg -Diet and lifestyle modifications -May benefit from OP weight mgmt program Hx Asthma -Albuterol prn DVT PPX -scd due to anemia disposition: continue inpatient care, stress test pending, 1 unit of PRBC transfusion is delayed due to patient having rbc antibodies, consulted and d/w Dr. Bowling, ordered Caprice. prolonged inpatient services 32 minutes History Interval history: Patient was seen and examined. Follow-up on current diagnosis. No overnight events reported to me. Patient denies any shortness breath, nausea/vomiting or severe headaches. Imaging, nursing note, chart, labs and old chart reviewed. Discussed with patient. Hospitalist Physical - Physical exam Narrative exam: Gen: WDWN, NAD, Awake, Alert, Orientated HEENT: NCAT, EOMI, PERRL, OP Clear Neck: supple, no adenopathy, no thyromegaly, no JVD CVS/Heart: RRR, normal S1S2, pulses present bilaterally Chest/Lungs: CTA B, Symmetrical chest expansion, good air entry bilaterally GI/Abdomen: soft, NTND, good bowel sounds, no guarding or rebound /Bladder: no suprapubic tenderness, no CVA or paraspinal tenderness Extermity/Skin: no c/c/e, no obvious rash MSK: FROM x 4 Neuro: CN 2-12 grossly intact, no new focal deficits Psych: calm - Constitutional Vitals: Temp Pulse Resp BP Pulse Ox 97.5 F L 88 18 121/71 98 09/13/19 04:20 09/13/19 04:20 09/13/19 04:20 09/13/19 04:20 09/13/19 04:20 Results - Labs CBC & Chem 7: 09/12/19 19:09 09/12/19 19:09 Labs: Laboratory Last Values WBC 7.2 K/mm3 (4.5-11.0) 09/12/19 19:09 RBC 3.22 M/mm3 (3.65-5.03) L 09/12/19 19:09 Hgb 6.9 gm/dl (10.1-14.3) L 09/12/19 19:09 Hct 23.4 % (30.3-42.9) L 09/12/19 19:09 MCV 73 fl (79-97) L 09/12/19 19:09 MCH 22 pg (28-32) L 09/12/19 19:09 MCHC 30 % (30-34) 09/12/19 19:09 RDW 19.8 % (13.2-15.2) H 09/12/19 19:09 Plt Count 416 K/mm3 (140-440) 09/12/19 19:09 Lymph % (Auto) 25.1 % (13.4-35.0) 09/12/19 19:09 [place] % (Auto) 5.5 % (0.0-7.3) 09/12/19 19:09 Eos % (Auto) 1.1 % (0.0-4.3) 09/12/19 19:09 Baso % (Auto) 0.7 % (0.0-1.8) 09/12/19 19:09 Lymph # 1.8 K/mm3 (1.2-5.4) 09/12/19 19:09 [place] # 0.4 K/mm3 (0.0-0.8) 09/12/19 19:09 Eos # 0.1 K/mm3 (0.0-0.4) 09/12/19 19:09 Baso # 0.1 K/mm3 (0.0-0.1) 09/12/19 19:09 Seg Neutrophils % 67.6 % (40.0-70.0) 09/12/19 19:09 Seg Neutrophils # 4.9 K/mm3 (1.8-7.7) 09/12/19 19:09 PT 14.3 Sec. (12.2-14.9) 09/12/19 19:34 INR 1.12 (0.87-1.13) 09/12/19 19:34 APTT 30.8 Sec. (24.2-36.6) 09/12/19 19:34 Sodium 136 mmol/L (137-145) L 09/12/19 19:09 Potassium 3.6 mmol/L (3.6-5.0) 09/12/19 19:09 Chloride 107.2 mmol/L (98-107) H 09/12/19 19:09 Carbon Dioxide 19 mmol/L (22-30) L 09/12/19 19:09 Anion Gap 13 mmol/L 09/12/19 19:09 BUN 8 mg/dL (7-17) 09/12/19 19:09 Creatinine 0.4 mg/dL (0.7-1.2) L 09/12/19 19:09 Estimated GFR > 60 ml/min 09/12/19 19:09 BUN/Creatinine Ratio 20 % 09/12/19 19:09 Glucose 82 mg/dL (65-100) 09/12/19 19:09 Calcium 8.5 mg/dL (8.4-10.2) 09/12/19 19:09 Total Bilirubin 0.40 mg/dL (0.1-1.2) 09/12/19 19:09 AST 12 units/L (5-40) 09/12/19 19:09 ALT 5 units/L (7-56) L 09/12/19 19:09 Alkaline Phosphatase 62 units/L (35-129) 09/12/19 19:09 Troponin T < 0.010 ng/mL (0.00-0.029) 09/12/19 20:59 NT-Pro-B Natriuret Pep 15.79 pg/mL (0-450) 09/12/19 19:09 Total Protein 8.3 g/dL (6.3-8.2) H 09/12/19 19:09 Albumin 3.5 g/dL (3.9-5) L 09/12/19 19:09 Albumin/Globulin Ratio 0.7 % 09/12/19 19:09 Triglycerides 46 mg/dL (2-149) 09/13/19 01:45 Cholesterol 113 mg/dL (50-199) 09/13/19 01:45 LDL Cholesterol Direct 58 mg/dL (50-130) 09/13/19 01:45 HDL Cholesterol 57 mg/dL (40-59) 09/13/19 01:45 Cholesterol/HDL Ratio 1.98 % 09/13/19 01:45 HCG, Qual Negative (Negative) 09/12/19 19:09 Urine Color Colorless (Yellow) 09/13/19 01:52 Urine Turbidity Clear (Clear) 09/13/19 01:52 Urine pH 6.0 (5.0-7.0) 09/13/19 01:52 Ur Specific [place] 1.019 (1.003-1.030) 09/13/19 01:52 Urine Protein <15 mg/dl mg/dL (Negative) 09/13/19 01:52 Urine Glucose (UA) Neg mg/dL (Negative) 09/13/19 01:52 Urine Ketones Neg mg/dL (Negative) 09/13/19 01:52 Urine Blood Sm (Negative) 09/13/19 01:52 Urine Nitrite Neg (Negative) 09/13/19 01:52 Urine Bilirubin Neg (Negative) 09/13/19 01:52 Urine Urobilinogen < 2.0 mg/dL (<2.0) 09/13/19 01:52 Ur Leukocyte Esterase Neg (Negative) 09/13/19 01:52 Urine WBC (Auto) 0.0 /HPF (0.0-6.0) 09/13/19 01:52 Urine RBC (Auto) 1.0 /HPF (0.0-6.0) 09/13/19 01:52 Active Medications - Current Medications Current Medications: Generic Name Dose Route Start Last Admin Trade Name Freq PRN Reason Stop Dose Admin Acetaminophen 650 mg 09/13/19 00:31 Tylenol PO Q4H PRN Pain MILD(1-3)/Fever >100.5/[place] Albuterol 2.5 mg 09/13/19 00:31 Proventil IH Q3HRT PRN Shortness Of Breath Atorvastatin Calcium 20 mg 09/13/19 22:00 Lipitor PO QHS TAYLA Docusate Sodium 100 mg 09/13/19 10:00 Colace PO BID TAYLA Morphine Sulfate 2 mg 09/13/19 00:31 Morphine IV Q4H PRN Pain, Moderate (4-6) Nitroglycerin 0.4 mg 09/12/19 19:23 Nitrostat SL .Q5MIN PRN Chest Pain Ondansetron HCl 4 mg 09/13/19 00:31 Zofran IV Q8H PRN Nausea And Vomiting Pantoprazole Sodium 40 mg 09/13/19 10:00 Protonix PO QDAY TAYLA Sodium Chloride 10 ml 09/13/19 10:00 Sodium Chloride Flush Syringe 10 Ml IV BID TAYLA Sodium Chloride 10 ml 09/13/19 00:31 Sodium Chloride Flush Syringe 10 Ml IV PRN PRN LINE FLUSH
[2019-09-13] MEDS ORDERED: amLODIPine 5 MG TAB PO SCH (10:00)
[2019-09-13] MEDS ORDERED: HEPARIN 5,000 UNIT/1 ML VIAL SUB-Q SCH (10:00)
[2019-09-13] MEDS ORDERED: CLOPIDOGREL 75 MG TAB PO SCH (10:00)
[2019-09-13] MEDS: DOCUSATE SODIUM 100 MG CAP PO SCH ×2 (12:21→21:49)
[2019-09-13] MEDS: PANTOPRAZOLE 40 MG TAB PO SCH (12:21)
--- NOTE | 2019-09-13 12:56 | Treadmill Report ---
NUCLEAR CARDIAC IMAGING INDICATION FOR PROCEDURE: Chest pain. Informed consent was obtained. Vasodilator stress was achieved following intravenous administration of 0.4 mg of Lexiscan per protocol. Rest and stress nuclear cardiac images were performed following the intravenous administration of technetium-99m Myoview per protocol. The baseline electrocardiogram demonstrates normal sinus rhythm. Following the intravenous administration of Lexiscan, there was one-half to [address] segment depression in the inferolateral leads. There was no accompanying chest pain. The ST segment repolarization changes returned back to baseline in the recovery phase. Gated SPECT imaging demonstrates a post-stress left ventricular ejection fraction of 70%. There is no significant cavity change between stress and rest. There is, however, a small mild reversible mid anterior perfusion abnormality. The Lexiscan stress test is clinically nonischemic. The electrocardiographic response is suspicious for ischemia. Nuclear cardiac imaging demonstrates grossly normal post-stress left ventricular systolic function with evidence of a small area of mid anterior ischemia. Although the finding of isolated ST segment repolarization changes following intravenous Lexiscan is of uncertain significance, its presence accompanied by a perfusion abnormality may be indicative of potentially significant underlying coronary artery disease. Further evaluation with coronary angiography may be appropriate. Clinical correlation required. JOB# [id number] BRRowena/NTS
[2019-09-13] MEDS: ONDANSETRON 4 MG/2 ML INJ IV PRN (13:30)
--- NOTE | 2019-09-13 14:09 | Consultation ---
History of Present Illness Consult date: 09/13/19 Requesting physician: JAYASHREE SOUSA Consult reason: chest pain History of present illness: Ms. Cummins is a 44 y/o female who presented to [facility] with worsening shortness of breath and chest pain over the past five days. She describes the pain as substernal, sharp and radiating to her back. The SOB o ccurs with minimal exertion and makes her unable to lie flat on her back. She also c/o BLE edema. Her medical history is significant for chronic anemia d/t bleeding from fibroids, hypertension, TIA, GERD and asthma. She has no notable cardiac history and does not follow with a general maintenance technician regularly. CXR, CTA and EKG NAF. Troponins negative. Stress test on 09/13/2019 notable for small, mild reversible defect in mid-anterior region accompanied by EKG abnormalities on Lexiscan. Past History Past Medical History: GERD, hypertension, other (obesity, TIA, Asthma) Past Surgical History: cholecystectomy, (x7) Social history: lives with family, full code. denies: smoking Family history: no significant family history Medications and Allergies Allergies Allergy/AdvReac Type Severity Reaction Status Date / Time aspirin Allergy Hives Verified 09/12/19 17:08 Home Medications Medication Instructions Recorded Confirmed Last Taken Type Clopidogrel [Plavix] 75 mg PO QDAY #30 tablet 07/15/18 Unknown Rx Famotidine [Pepcid] 20 mg PO BID #60 tablet 07/15/18 Unknown Rx Gabapentin 300 mg PO BID #60 capsule 07/15/18 Unknown Rx Simvastatin (Nf) [Zocor TAB] 20 mg PO QHS #30 tablet 07/15/18 Unknown Rx Docusate Sodium [Colace] 100 mg PO BID #60 capsule 03/01/19 Unknown Rx Ferrous Sulfate [Feosol 325 MG tab] 325 mg PO TID #90 tablet 03/01/19 Unknown Rx Active Meds: Active Medications Acetaminophen (Tylenol) 650 mg PO Q4H PRN PRN Reason: Pain MILD(1-3)/Fever >100.5/[place] Albuterol (Proventil) 2.5 mg IH Q3HRT PRN PRN Reason: Shortness Of Breath Atorvastatin Calcium (Lipitor) 20 mg PO QHS TAYLA Docusate Sodium (Colace) 100 mg PO BID COUNT INCLUDES THE [facility] Last Admin: 09/13/19 12:21 Dose: Not Given Documented by: Morphine Sulfate (Morphine) 2 mg IV Q4H PRN PRN Reason: Pain, Moderate (4-6) Nitroglycerin (Nitrostat) 0.4 mg SL .Q5MIN PRN PRN Reason: Chest Pain Ondansetron HCl (Zofran) 4 mg IV Q8H PRN PRN Reason: Nausea And Vomiting Last Admin: 09/13/19 13:30 Dose: 4 mg Documented by: Pantoprazole Sodium (Protonix) 40 mg PO QDAY COUNT INCLUDES THE [facility] Last Admin: 09/13/19 12:21 Dose: 40 mg Documented by: Sodium Chloride (Sodium Chloride Flush Syringe 10 Ml) 10 ml IV BID COUNT INCLUDES THE [facility] Last Admin: 09/13/19 12:21 Dose: 10 ml Documented by: Sodium Chloride (Sodium Chloride Flush Syringe 10 Ml) 10 ml IV PRN PRN PRN Reason: LINE FLUSH Review of Systems Cardiovascular: chest pain, shortness of breath Physical Examination Last Vital Signs Temp 98.3 F 09/13/19 13:55 Pulse 80 09/13/19 13:55 Resp 18 09/13/19 13:55 BP 120/71 09/13/19 13:55 Pulse Ox 72 L 09/13/19 13:25 General appearance: no acute distress HEENT: Positive: PERRL Neck: Positive: neck supple Cardiac: Positive: Reg Rate and Rhythm Lungs: Positive: Normal Exam Neuro: Positive: Grossly Intact Abdomen: Positive: Unremarkable Female genitourinary: deferred Skin: Positive: Clear Musculoskeletal: Normal Range of Motion Extremities: Present: edema (trace to BLE) Results 09/12/19 19:09 09/12/19 19:09 Cardiac Enzymes 09/12/19 Range/Units 19:09 AST 12 (5-40) units/L Coagulation 09/12/19 Range/Units 19:34 PT 14.3 (12.2-14.9) Sec. INR 1.12 (0.87-1.13) APTT 30.8 (24.2-36.6) Sec. Lipids 09/13/19 Range/Units 01:45 Triglycerides 46 (2-149) mg/dL Cholesterol 113 (50-199) mg/dL HDL Cholesterol 57 (40-59) mg/dL Cholesterol/HDL Ratio 1.98 % CBC 12/06/19 Range/Units 19:09 WBC 7.2 (4.5-11.0) K/mm3 RBC 3.22 L (3.65-5.03) M/mm3 Hgb 6.9 L (10.1-14.3) gm/dl Hct 23.4 L (30.3-42.9) % Plt Count 416 (140-440) K/mm3 Lymph # 1.8 (1.2-5.4) K/mm3 [place] # 0.4 (0.0-0.8) K/mm3 Eos # 0.1 (0.0-0.4) K/mm3 Baso # 0.1 (0.0-0.1) K/mm3 Comprehensive Metabolic Panel 09/12/19 Range/Units 19:09 Sodium 136 L (137-145) mmol/L Potassium 3.6 (3.6-5.0) mmol/L Chloride 107.2 H (98-107) mmol/L Carbon Dioxide 19 L (22-30) mmol/L BUN 8 (7-17) mg/dL Creatinine 0.4 L (0.7-1.2) mg/dL Glucose 82 (65-100) mg/dL Calcium 8.5 (8.4-10.2) mg/dL AST 12 (5-40) units/L ALT 5 L (7-56) units/L Alkaline Phosphatase 62 (35-129) units/L Total Protein 8.3 H (6.3-8.2) g/dL Albumin 3.5 L (3.9-5) g/dL EKG interpretations - Telemetry EKG Rhythm: Sinus Rhythm Assessment and Plan Ms. Cummins is a 44 y/o female admitted with CP and SOB. Based on her stress results, we recommend cardiac CT d/t low probability of CAD. Patient is amenable to proceed. SOB could be r/t anemia, but will also obtain echocardio gram. Cardiac status is otherwise stable. Continue current cardiac management for now. - Patient Problems (1) Chest pain in adult Current Visit: Yes Status: Acute (2) Dyspnea on exertion Current Visit: Yes Status: Acute (3) Anemia Current Visit: No Status: Acute Qualifiers: Hemolytic anemia type: acquired, nonautoimmune, drug-induced (4) TIA (transient ischemic attack) Current Visit: No Status: Chronic (5) Hypertension Current Visit: Yes Status: Chronic
--- NOTE | 2019-09-13 15:59 | Event Note ---
Date: 09/13/19 [id number]
[2019-09-13] MEDS ORDERED: SODIUM FERRIC GLUCON/SUCRO 125 MG in SODIUM CHLORIDE 0.9% 100 ML IV ONE (16:10)
[2019-09-13] MEDS: MULTIVITAMINS ,THERAPEUTIC TAB PO SCH (16:53)
[2019-09-13 18:22] LABS: Iron 187 ug/dL (37-170)
[2019-09-13 18:23] LABS: Total Iron Binding Capacity 345 mcg/dL (250-450)
[2019-09-14] MEDS: ONDANSETRON 4 MG/2 ML INJ IV PRN (00:28)
[2019-09-14 09:32] LABS: Basophils # (Auto) 0.1 K/mm3 (0.0-0.1); Eosinophils # (Auto) 0.1 K/mm3 (0.0-0.4); Eosinophils % (Auto) 1.5 % (0.0-4.3); Hematocrit 25.2 % (30.3-42.9); Hemoglobin 7.6 gm/dl (10.1-14.3); Lymphocytes # (Auto) 1.5 K/mm3 (1.2-5.4); Lymphocytes % (Auto) 23.1 % (13.4-35.0); Mean Corpuscular HGB Conc 30 % (30-34); Mean Corpuscular Volume 73 fl (79-97); Monocytes # (Auto) 0.6 K/mm3 (0.0-0.8); Monocytes % (Auto) 8.4 % (0.0-7.3); Platelet Count 368 K/mm3 (140-440); Red Blood Count 3.47 M/mm3 (3.65-5.03)
[2019-09-14 09:36] LABS: Red Cell Distribution Width 20.1 % (13.2-15.2)
[2019-09-14 09:37] LABS: BUN/Creatinine Ratio 15; Blood Urea Nitrogen 6 mg/dL (7-17); Calcium 8.5 mg/dL (8.4-10.2); Hemolysis Index 5
[2019-09-14] MEDS: PANTOPRAZOLE 40 MG TAB PO SCH (10:21)
[2019-09-14] MEDS: DOCUSATE SODIUM 100 MG CAP PO SCH ×2 (10:21→21:30)
[2019-09-14] MEDS: MULTIVITAMINS ,THERAPEUTIC TAB PO SCH (10:21)
--- NOTE | 2019-09-14 12:55 | Progress Note ---
Assessment and Plan Cardiac status is improved. CT angio of heart pending. NPO after midnight. Renal function WNL. Administer metoprolol 50 mg PO once at midnight and again 2 to 3 hours prior to test in AM. The patient has been seen in conjunction with Dr. Ahumada, who agrees with the assessment and plan. - Patient Problems (1) Chest pain in adult Current Visit: Yes Status: Acute (2) Dyspnea on exertion Current Visit: Yes Status: Acute (3) Anemia Current Visit: No Status: Acute Qualifiers: Hemolytic anemia type: acquired, nonautoimmune, drug-induced (4) TIA (transient ischemic attack) Current Visit: No Status: Chronic (5) Hypertension Current Visit: Yes Status: Chronic Subjective Date of service: 09/14/19 Interval history: The patient is lying in bed in NAD. She has no complaints. CT angio of heart scheduled for AM - discussed with patient, who is agreeable to proceed. SR in 60s on telemetry. Echocardiogram reviewed: EF 60 to 65 percent, trace MR and mild TR. Objective Last Vital Signs Temp 98.2 F 09/14/19 08:24 Pulse 78 09/14/19 08:24 Resp 18 09/14/19 08:24 BP 106/73 09/14/19 08:24 Pulse Ox 99 09/14/19 08:24 - Physical Examination General: No Apparent Distress HEENT: Positive: PERRL Neck: Positive: neck supple Cardiac: Positive: Reg Rate and Rhythm Lungs: Positive: Normal Exam Neuro: Positive: Grossly Intact Abdomen: Positive: Unremarkable /Rectal: Other (deferred) Skin: Positive: Clear Musculoskeletal: Normal Range of Motion Extremities: Present: edema (trace to BLE) - Labs and Meds CBC 09/14/19 Range/Units 08:02 WBC 6.7 (4.5-11.0) K/mm3 RBC 3.47 L (3.65-5.03) M/mm3 Hgb 7.6 L (10.1-14.3) gm/dl Hct 25.2 L (30.3-42.9) % Plt Count 368 (140-440) K/mm3 Lymph # 1.5 (1.2-5.4) K/mm3 [place] # 0.6 (0.0-0.8) K/mm3 Eos # 0.1 (0.0-0.4) K/mm3 Baso # 0.1 (0.0-0.1) K/mm3 Comprehensive Metabolic Panel 09/14/19 Range/Units 08:02 Sodium 140 (137-145) mmol/L Potassium 3.4 L (3.6-5.0) mmol/L Chloride 106.0 (98-107) mmol/L Carbon Dioxide 21 L (22-30) mmol/L BUN 6 L (7-17) mg/dL Creatinine 0.4 L (0.7-1.2) mg/dL Glucose 102 H (65-100) mg/dL Calcium 8.5 (8.4-10.2) mg/dL - Imaging and Cardiology Echo: report reviewed (09/13/19: EF 60-65%, mild TR, trace MR)
[2019-09-14 14:02] LABS: Hematocrit 26.1 % (30.3-42.9); Hemoglobin 7.8 gm/dl (10.1-14.3)
[2019-09-14] MEDS ORDERED: POTASSIUM CHLORIDE ER 20 MEQ TAB PO ONE (16:46)
--- NOTE | 2019-09-14 16:48 | Progress Note ---
Assessment and Plan Assessment and plan: Patient is a 44-year-old -[place] female with history of hypertension, TIA, GERD, and asthma who presents to [facility] ED with complaints of chest pain, sob and dyspnea on exertion for the past week. Pt states that she has been experiencing substernal chest pain with radiation to left and right chest, back and BLE for the past week. Her pain is accompanied by SOB. During the past 3 days her SOB has worsened. She is unable to walk 5 steps without becoming SOB. Furthermore, pt is unable to lay flat and has to sleep sitting up in chair. Pt also complains of BLE edema with generalized weakness. Pt admits to be noncompliant with meds. She admits to nausea. She denies emesis, cough, hemoptysis, fever, headache, visual disturbances, or syncope. She denies previous cardiac workup. * CXR IMPRESSION: 1. No acute finding. No significant change. * CT angio Chest IMPRESSION: 1. No CT evidence for pulmonary embolism. 2. No acute findings. Acute Chest Pain stress test abnormal, moderate clinical suspicion for ischemia, Cardiac CT heart tomorrow. R/O ACS -Initiate chest pain protocol -Continuous telemetry monitoring -Continue supportive care -Pain mgmt -Troponin negative x 2 -EKG unrevealing for acute ischemic abnormalities -CXR unremarkable -Lexiscan pending -On Plavix and Statin Anemia -Hemoglobin on admission 6.9 -Hx chronic anemia -No s/s of bleeding -1U PRBC ordered; transfusion pending -Continue to monitor hemoglobin -Transfuse as needed Dyspnea on Exertion -O2 sat 98-100% on RA -Hx Asthma -CT angio Chest negative for PE -Likely secondary to anemia, abdominal obesity/ Pulmonary disease -ProBNP WNL -Albuterol prn -Continue supportive care HTN -Hx of HTN non-compliant with meds -Monitor BP -Resume home hypertensive meds once medication home meds have been reconciled -IV hydralazine when necessary Morbid Obesity -BMI 51.2kg -Diet and lifestyle modifications -May benefit from OP weight mgmt program Hx Asthma -Albuterol prn DVT PPX -scd due to anemia disposition: continue inpatient care, stress test abnormal, moderate clinical suspicion for ischemia, Cardiac CT heart tomorrow. History Interval history: Patient was seen and examined. Follow-up on current diagnosis. No overnight events reported to me. Patient denies any shortness breath, nausea/vomiting or severe headaches. Imaging, nursing note, chart, labs and old chart reviewed. Discussed with patient. Hospitalist Physical - Physical exam Narrative exam: Gen: WDWN, NAD, Awake, Alert, Orientated HEENT: NCAT, EOMI, PERRL, OP Clear Neck: supple, no adenopathy, no thyromegaly, no JVD CVS/Heart: RRR, normal S1S2, pulses present bilaterally Chest/Lungs: CTA B, Symmetrical chest expansion, good air entry bilaterally GI/Abdomen: soft, NTND, good bowel sounds, no guarding or rebound /Bladder: no suprapubic tenderness, no CVA or paraspinal tenderness Extermity/Skin: no c/c/e, no obvious rash MSK: FROM x 4 Neuro: CN 2-12 grossly intact, no new focal deficits Psych: calm - Constitutional Vitals: Temp Pulse Resp BP Pulse Ox 98.2 F 78 18 106/73 99 09/14/19 08:24 09/14/19 08:24 09/14/19 08:24 09/14/19 08:24 09/14/19 08:24 General appearance: Present: no acute distress Results - Labs CBC & Chem 7: 09/14/19 13:38 09/14/19 08:02 Labs: Laboratory Last Values WBC 6.7 K/mm3 (4.5-11.0) 09/14/19 08:02 RBC 3.47 M/mm3 (3.65-5.03) L 09/14/19 08:02 Hgb 7.8 gm/dl (10.1-14.3) L 09/14/19 13:38 Hct 26.1 % (30.3-42.9) L 09/14/19 13:38 MCV 73 fl (79-97) L 09/14/19 08:02 MCH 22 pg (28-32) L 09/14/19 08:02 MCHC 30 % (30-34) 09/14/19 08:02 RDW 20.1 % (13.2-15.2) H 09/14/19 08:02 Plt Count 368 K/mm3 (140-440) 09/14/19 08:02 Lymph % (Auto) 23.1 % (13.4-35.0) 09/14/19 08:02 [place] % (Auto) 8.4 % (0.0-7.3) H 09/14/19 08:02 Eos % (Auto) 1.5 % (0.0-4.3) 09/14/19 08:02 Baso % (Auto) 1.0 % (0.0-1.8) 09/14/19 08:02 Lymph # 1.5 K/mm3 (1.2-5.4) 09/14/19 08:02 [place] # 0.6 K/mm3 (0.0-0.8) 09/14/19 08:02 Eos # 0.1 K/mm3 (0.0-0.4) 09/14/19 08:02 Baso # 0.1 K/mm3 (0.0-0.1) 09/14/19 08:02 Seg Neutrophils % 66.0 % (40.0-70.0) 09/14/19 08:02 Seg Neutrophils # 4.4 K/mm3 (1.8-7.7) 09/14/19 08:02 PT 14.3 Sec. (12.2-14.9) 09/12/19 19:34 INR 1.12 (0.87-1.13) 09/12/19 19:34 APTT 30.8 Sec. (24.2-36.6) 09/12/19 19:34 Sodium 140 mmol/L (137-145) 09/14/19 08:02 Potassium 3.4 mmol/L (3.6-5.0) L 09/14/19 08:02 Chloride 106.0 mmol/L (98-107) 09/14/19 08:02 Carbon Dioxide 21 mmol/L (22-30) L 09/14/19 08:02 Anion Gap 16 mmol/L 09/14/19 08:02 BUN 6 mg/dL (7-17) L 09/14/19 08:02 Creatinine 0.4 mg/dL (0.7-1.2) L 09/14/19 08:02 Estimated GFR > 60 ml/min 09/14/19 08:02 BUN/Creatinine Ratio 15 % 09/14/19 08:02 Glucose 102 mg/dL (65-100) H 09/14/19 08:02 Calcium 8.5 mg/dL (8.4-10.2) 09/14/19 08:02 Iron 187 ug/dL (37-170) H 09/13/19 17:47 TIBC 345 mcg/dL (250-450) 09/13/19 17:47 Ferritin 3.9 ng/mL (13.0-400.0) L 09/13/19 11:14 Total Bilirubin 0.40 mg/dL (0.1-1.2) 09/12/19 19:09 AST 12 units/L (5-40) 09/12/19 19:09 ALT 5 units/L (7-56) L 09/12/19 19:09 Alkaline Phosphatase 62 units/L (35-129) 09/12/19 19:09 Troponin T < 0.010 ng/mL (0.00-0.029) 09/12/19 20:59 NT-Pro-B Natriuret Pep 15.79 pg/mL (0-450) 09/12/19 19:09 Total Protein 8.3 g/dL (6.3-8.2) H 09/12/19 19:09 Albumin 3.5 g/dL (3.9-5) L 09/12/19 19:09 Albumin/Globulin Ratio 0.7 % 09/12/19 19:09 Triglycerides 46 mg/dL (2-149) 09/13/19 01:45 Cholesterol 113 mg/dL (50-199) 09/13/19 01:45 LDL Cholesterol Direct 58 mg/dL (50-130) 09/13/19 01:45 HDL Cholesterol 57 mg/dL (40-59) 09/13/19 01:45 Cholesterol/HDL Ratio 1.98 % 09/13/19 01:45 Vitamin B12 228.7 pg/mL (211-911) 09/13/19 17:47 Folate 13.98 ng/mL (7.3-26.0) 09/13/19 17:47 HCG, Qual Negative (Negative) 09/12/19 19:09 Urine Color Colorless (Yellow) 09/13/19 01:52 Urine Turbidity Clear (Clear) 09/13/19 01:52 Urine pH 6.0 (5.0-7.0) 09/13/19 01:52 Ur Specific Snyder 1.019 (1.003-1.030) 09/13/19 01:52 Urine Protein <15 mg/dl mg/dL (Negative) 09/13/19 01:52 Urine Glucose (UA) Neg mg/dL (Negative) 09/13/19 01:52 Urine Ketones Neg mg/dL (Negative) 09/13/19 01:52 Urine Blood Sm (Negative) 09/13/19 01:52 Urine Nitrite Neg (Negative) 09/13/19 01:52 Urine Bilirubin Neg (Negative) 09/13/19 01:52 Urine Urobilinogen < 2.0 mg/dL (<2.0) 09/13/19 01:52 Ur Leukocyte Esterase Neg (Negative) 09/13/19 01:52 Urine WBC (Auto) 0.0 /HPF (0.0-6.0) 09/13/19 01:52 Urine RBC (Auto) 1.0 /HPF (0.0-6.0) 09/13/19 01:52 Blood Type A POSITIVE 09/13/19 04:35 Antibody Screen Positive 09/13/19 04:35 Antibody Identification Anti-K 09/13/19 04:35 Direct Antiglob Test Negative 09/13/19 04:35 DARRYL, Poly Interpret Negative 09/13/19 04:35 Crossmatch See Detail 09/13/19 04:35 Active Medications - Current Medications Current Medications: Generic Name Dose Route Start Last Admin Trade Name Freq PRN Reason Stop Dose Admin Acetaminophen 650 mg 09/13/19 00:31 Tylenol PO Q4H PRN Pain MILD(1-3)/Fever >100.5/[place] Albuterol 2.5 mg 09/13/19 00:31 Proventil IH Q3HRT PRN Shortness Of Breath Atorvastatin Calcium 20 mg 09/13/19 22:00 09/13/19 21:48 Lipitor PO 20 mg QHS TAYLA Administration Docusate Sodium 100 mg 09/13/19 10:00 09/14/19 10:21 Colace PO 100 mg BID TAYLA Administration Metoprolol Tartrate 50 mg 09/15/19 00:01 Metoprolol PO 09/15/19 00:02 ONCE ONE Metoprolol Tartrate 50 mg 09/15/19 06:00 Metoprolol PO 09/15/19 06:01 ONCE ONE Morphine Sulfate 2 mg 09/13/19 00:31 09/14/19 00:23 Morphine IV 2 mg Q4H PRN Administration Pain, Moderate (4-6) Multivitamins 1 each 09/13/19 17:00 09/14/19 10:21 Theragran Tab PO 1 each QDAY TAYLA Administration Nitroglycerin 0.4 mg 09/12/19 19:23 Nitrostat SL .Q5MIN PRN Chest Pain Ondansetron HCl 4 mg 09/13/19 00:31 09/14/19 00:28 Zofran IV 4 mg Q8H PRN Administration Nausea And Vomiting Pantoprazole Sodium 40 mg 09/13/19 10:00 09/14/19 10:21 Protonix PO 40 mg QDAY TAYLA Administration Potassium Chloride 20 meq 09/14/19 16:46 K-Dur PO 09/14/19 16:47 ONCE ONE Sodium Chloride 10 ml 09/13/19 10:00 09/14/19 10:21 Sodium Chloride Flush Syringe 10 Ml IV 10 ml BID TAYLA Administration Sodium Chloride 10 ml 09/13/19 00:31 Sodium Chloride Flush Syringe 10 Ml IV PRN PRN LINE FLUSH
[2019-09-14] MEDS ORDERED: CYANOCOBALAMIN (VIT B-12) 1000 MCG/1 ML INJ SUB-Q ONE (19:44)
[2019-09-14] MEDS: FERROUS SULFATE 325 MG TAB PO SCH (21:31)
[2019-09-15] MEDS ORDERED: METOPROLOL TARTRATE 50 MG TAB PO ONE ×2 (00:01→06:00)
--- NOTE | 2019-09-15 01:13 | Consultation ---
REFERRED BY: Dr. Henley. REASON FOR CONSULTATION: Microcytic anemia. HISTORY OF PRESENT ILLNESS: I saw the patient, a 44-year-old -[place] female in the medical floor. The patient came to the hospital because of shortness of breath, chest pain for 5 days. This was substernal, sharp, shortness of breath with minimal exertion. Also had history of leg edema and she was found to be anemic. She also has past history of heavy cycles, hypertension, TIA, GERD, asthma. She is not on oral iron. She has seen her cst. Cardiology team has seen the patient. Stress test has been done. She has multiple pregnancies and at this time antibodies have been found and transfusion is taking time. At this time, no headache, no visual disturbances, no ear discharge. History of chest pain, history of shortness of breath present, history of heavy cycles present. No vomiting, no diarrhea, no dysuria. No abdominal pain. No seizure, syncope or loss of consciousness. PAST MEDICAL HISTORY: As above. PAST SURGICAL HISTORY: Gallbladder surgery, x 7. SOCIAL HISTORY: Lives with family members. No history of smoking. FAMILY HISTORY: Noncontributory. ALLERGIES: ASPIRIN. PHYSICAL EXAMINATION: VITAL SIGNS: Temperature is 98.3, pulse 68, respirations 18, BP 100/50. HEENT: Pallor present, no icterus. NECK: No neck lymph nodes. HEART: S1, S2. LUNGS: Clear to auscultation. ABDOMEN: Soft. EXTREMITIES: No calf tenderness. NEUROLOGIC: Alert, awake, oriented. LABORATORY DATA: White cell 7, hemoglobin 6.9, MCV 63, platelet 416, potassium 3.6, creatinine 0.4, calcium 8.5, bilirubin 0.4, B12 of 228, folate 13. Ferritin 3.9. ASSESSMENT: 1. Microcytic anemia secondary to iron deficiency. The patient denies any gastric surgery. IV iron will be looked into. Transfusion support has been done. 2. 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 3. Low iron, low ferritin and low B12. Normal folate. 4. I discussed with the patient regarding IV iron. 5. Cardiology team is planning cardiac procedures. 6. History of hypertension. 7. History of transient ischemic attacks. 8. History of obesity. 9. History of gastroesophageal reflux disease. PLAN: I will follow the patient during inpatient stay and then in the clinic setting. We will look into replacement of the deficiency factor. JOB# [id number] KEVIN/NTS
[2019-09-15] MEDS ORDERED: METOPROLOL TARTRATE 50 MG TAB ONE (02:46)
--- NOTE | 2019-09-15 08:14 | Hem/Onc Progress Note ---
Assessment and Plan 1. Microcytic anemia secondary to iron deficiency. The patient denies any gastric surgery. IV iron. Transfusion support has been done. 2. 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 3. Low iron, low ferritin and low B12. Normal folate. 4. I had discussed with the patient regarding IV iron. 5. Cardiology team is following cardiac procedures. 6. History of hypertension. 7. History of transient ischemic attacks. 8. History of obesity. 9. History of gastroesophageal reflux disease. PLAN: I will follow the patient during inpatient stay and then in the clinic setting. We will look into replacement of the deficiency - iron and b12. - Patient Problems (1) Symptomatic anemia Current Visit: No Status: Acute Subjective Date of service: 09/15/19 Principal diagnosis: anemia Interval history: s/p Iv iron b12 replacement Objective - Exam Narrative Exam: Pain - none General appearance - alert Performance status limited self care Eyes - no icterus ENT - no bleeding LNs cervical not palpable Neck - no LN Respiratory Normal - on o2 Breath sounds - CTA anteriorly CVS S1 S2 + Extremities no edema General GI Soft Rectal deferred female - deferred Skin warm Musculoskeletal - moving limbs Neurologically alert awake - Constitutional Vitals: Last Vital Signs Temp 98.5 F 09/15/19 05:29 Pulse 65 09/15/19 05:29 Resp 18 09/15/19 05:29 BP 86/39 09/15/19 05:29 Pulse Ox 98 09/15/19 05:29 - Labs Lab Results: Laboratory Results - last 24 hr 09/14/19 09/14/19 09/14/19 08:02 08:02 13:38 WBC 6.7 RBC 3.47 L Hgb 7.6 L 7.8 L Hct 25.2 L 26.1 L MCV 73 L MCH 22 L MCHC 30 RDW 20.1 H Plt Count 368 Lymph % (Auto) 23.1 [place] % (Auto) 8.4 H Eos % (Auto) 1.5 Baso % (Auto) 1.0 Lymph # 1.5 [place] # 0.6 Eos # 0.1 Baso # 0.1 Seg Neutrophils % 66.0 Seg Neutrophils # 4.4 Sodium 140 Potassium 3.4 L Chloride 106.0 Carbon Dioxide 21 L Anion Gap 16 BUN 6 L Creatinine 0.4 L Estimated GFR > 60 BUN/Creatinine Ratio 15 Glucose 102 H Calcium 8.5 Medications & Allergies - Medications Allergies/Adverse Reactions: Allergies aspirin Allergy (Verified 09/12/19 17:08) Hives Home Medications: Home Medications Medication Instructions Recorded Confirmed Last Taken Type Clopidogrel [Plavix] 75 mg PO QDAY #30 tablet 07/15/18 Unknown Rx Famotidine [Pepcid] 20 mg PO BID #60 tablet 07/15/18 Unknown Rx Gabapentin 300 mg PO BID #60 capsule 07/15/18 Unknown Rx Simvastatin (Nf) [Zocor TAB] 20 mg PO QHS #30 tablet 07/15/18 Unknown Rx Docusate Sodium [Colace CAP] 100 mg PO BID #60 capsule 03/01/19 Unknown Rx Ferrous Sulfate [Feosol 325 MG tab] 325 mg PO TID #90 tablet 03/01/19 Unknown Rx ALBUTEROL NEB's [Proventil 0.083% 2.5 mg IH Q3HRT PRN #15 nebu 09/15/19 Unknown Rx NEBS] Acetaminophen [Acetaminophen TAB] 2 tab PO Q4H PRN #15 tablet 09/15/19 Unknown Rx AtorvaSTATin [Lipitor] 20 mg PO QHS #30 tablet 09/15/19 Unknown Rx Cyanocobalamin [Vitamin B-12] 1,000 mcg PO QDAY #30 tablet 09/15/19 Unknown Rx Multivitamin Tab [Multiple Vitamin 1 each PO QDAY #30 tablet 09/15/19 Unknown Rx TAB (Theragran)] Active Medications: Generic Name Dose Route Start Last Admin Trade Name Freq PRN Reason Stop Dose Admin Acetaminophen 650 mg 09/13/19 00:31 Tylenol PO Q4H PRN Pain MILD(1-3)/Fever >100.5/[place] Albuterol 2.5 mg 09/13/19 00:31 Proventil IH Q3HRT PRN Shortness Of Breath Atorvastatin Calcium 20 mg 09/13/19 22:00 09/14/19 21:31 Lipitor PO 20 mg QHS TAYLA Administration Cyanocobalamin 1,000 mcg 09/15/19 10:00 Vitamin B-12 PO QDAY TAYLA Docusate Sodium 100 mg 09/13/19 10:00 09/14/19 21:30 Colace PO 100 mg BID TAYLA Administration Ferrous Sulfate 325 mg 09/14/19 22:00 09/14/19 21:31 Feosol PO 325 mg BID TAYLA Administration Morphine Sulfate 2 mg 09/13/19 00:31 09/14/19 00:23 Morphine IV 2 mg Q4H PRN Administration Pain, Moderate (4-6) Multivitamins 1 each 09/13/19 17:00 09/14/19 10:21 Theragran Tab PO 1 each QDAY TAYLA Administration Nitroglycerin 0.4 mg 09/12/19 19:23 Nitrostat SL .Q5MIN PRN Chest Pain Ondansetron HCl 4 mg 09/13/19 00:31 09/14/19 00:28 Zofran IV 4 mg Q8H PRN Administration Nausea And Vomiting Pantoprazole Sodium 40 mg 09/13/19 10:00 09/14/19 10:21 Protonix PO 40 mg QDAY TAYLA Administration Sodium Chloride 10 ml 09/13/19 10:00 09/14/19 21:31 Sodium Chloride Flush Syringe 10 Ml IV 10 ml BID TAYLA Administration Sodium Chloride 10 ml 09/13/19 00:31 Sodium Chloride Flush Syringe 10 Ml IV PRN PRN LINE FLUSH
[2019-09-15] MEDS ORDERED: METOPROLOL TARTRATE 5 MG/5 ML INJ IV NR (08:57)
[2019-09-15] MEDS ORDERED: NITROGLYCERIN 0.4 MG TAB SUBL SL NR (08:57)
[2019-09-15] MEDS: PANTOPRAZOLE 40 MG TAB PO SCH (09:52)
[2019-09-15] MEDS: MULTIVITAMINS ,THERAPEUTIC TAB PO SCH (09:52)
[2019-09-15] MEDS: FERROUS SULFATE 325 MG TAB PO SCH (09:52)
[2019-09-15] MEDS: DOCUSATE SODIUM 100 MG CAP PO SCH (09:52)
[2019-09-15] MEDS ORDERED: CYANOCOBALAMIN (VIT B-12) 1000 MCG TAB PO SCH (10:00)
--- NOTE | 2019-09-15 11:53 | Cat Scan Report ---
LIMITED CTA CHEST Indication: Limited evaluation of the chest associated with cardiac CTA exam. Technique: Arterial phase technique utilized to evaluate the carotid arteries. Please refer to the of ficial cardiac CTA report for contrast details. All CT scans at this location are performed using CT dose reduction for ALARA by means of automated exposure control. Findings: No pathologic adenopathy. Visualized lungs are clear. There are degenerative changes in the spine with no acute osseous abnormality. Limited imaging through the upper abdomen shows nothing acute. Impression: No significant incidental finding. Signer Name: Javi Rojas Jr, MD Signed: 09/15/2019 11:49 AM Workstation Name: [id number]
--- NOTE | 2019-09-15 15:05 | Progress Note ---
Assessment and Plan CCTA pending - if WNL, pt may discharge home from cardiology standpoint and f/u in our office with Dr. Ahumada ([phone]). Of note, pt reports h/o uterine fibroids and heavy menstruation requiring PRBC for the past several years. She states that she has been advised to have fibroids removed. Suspect significant anemia is contributing to her cp and dyspnea. Recommend that she f/u with [facility] as OP. Pt verbalizes understanding. The patient has been seen in conjunction with Dr. Meza who agrees with the assessment and plan of care. - Patient Problems (1) Chest pain in adult Current Visit: Yes Status: Resolved (2) Dyspnea on exertion Current Visit: Yes Status: Acute (3) Anemia Current Visit: No Status: Acute Qualifiers: Hemolytic anemia type: acquired, nonautoimmune, drug-induced (4) TIA (transient ischemic attack) Current Visit: No Status: Chronic (5) Hypertension Current Visit: Yes Status: Chronic Subjective Date of service: 09/15/19 Principal diagnosis: cp Interval history: pt resting in bed, s/p CCTA this AM. she is still experiencing exertional dyspnea. Objective Last Vital Signs Temp 98.7 F 09/15/19 12:36 Pulse 66 09/15/19 12:36 Resp 18 09/15/19 12:36 BP 105/73 09/15/19 12:36 Pulse Ox 99 09/15/19 12:36 - Physical Examination General: No Apparent Distress HEENT: Positive: PERRL Neck: Positive: neck supple Cardiac: Positive: Reg Rate and Rhythm, S1/S2 Lungs: Positive: Decreased Breath Sounds Neuro: Positive: Grossly Intact Abdomen: Positive: Unremarkable /Rectal: Other (deferred) Skin: Positive: Clear Musculoskeletal: Normal Range of Motion Extremities: Present: edema (trace to BLE) - Imaging and Cardiology Echo: report reviewed (09/13/19: EF 60-65%, mild TR, trace MR)
--- NOTE | 2019-09-15 15:58 | Progress Note ---
Assessment and Plan Assessment and plan: Patient is a 44-year-old -[place] female with history of hypertension, TIA, GERD, and asthma who presents to [facility] ED with complaints of chest pain, sob and dyspnea on exertion for the past week. Pt states that she has been experiencing substernal chest pain with radiation to left and right chest, back and BLE for the past week. Her pain is accompanied by SOB. During the past 3 days her SOB has worsened. She is unable to walk 5 steps without becoming SOB. Furthermore, pt is unable to lay flat and has to sleep sitting up in chair. Pt also complains of BLE edema with generalized weakness. Pt admits to be noncompliant with meds. She admits to nausea. She denies emesis, cough, hemoptysis, fever, headache, visual disturbances, or syncope. She denies previous cardiac workup. * CXR IMPRESSION: 1. No acute finding. No significant change. * CT angio Chest IMPRESSION: 1. No CT evidence for pulmonary embolism. 2. No acute findings. Acute Chest Pain stress test abnormal, moderate clinical suspicion for ischemia, Cardiac CT heart tomorrow. R/O ACS -Initiate chest pain protocol -Continuous telemetry monitoring -Continue supportive care -Pain mgmt -Troponin negative x 2 -EKG unrevealing for acute ischemic abnormalities -CXR unremarkable -Lexiscan pending -On Plavix and Statin Anemia -Hemoglobin on admission 6.9 -Hx chronic anemia -No s/s of bleeding -1U PRBC ordered; transfusion pending -Continue to monitor hemoglobin -Transfuse as needed Dyspnea on Exertion -O2 sat 98-100% on RA -Hx Asthma -CT angio Chest negative for PE -Likely secondary to anemia, abdominal obesity/ Pulmonary disease -ProBNP WNL -Albuterol prn -Continue supportive care HTN -Hx of HTN non-compliant with meds -Monitor BP -Resume home hypertensive meds once medication home meds have been reconciled -IV hydralazine when necessary Morbid Obesity -BMI 51.2kg -Diet and lifestyle modifications -May benefit from OP weight mgmt program Hx Asthma -Albuterol prn DVT PPX -scd due to anemia disposition: continue inpatient care, stress test abnormal, moderate clinical suspicion for ischemia, Cardiac CT heart tomorrow. History Interval history: Patient was seen and examined. Follow-up on current diagnosis. No overnight events reported to me. Patient denies any shortness breath, nausea/vomiting or severe headaches. Imaging, nursing note, chart, labs and old chart reviewed. Discussed with patient. Hospitalist Physical - Physical exam Narrative exam: Gen: WDWN, NAD, Awake, Alert, Orientated HEENT: NCAT, EOMI, PERRL, OP Clear Neck: supple, no adenopathy, no thyromegaly, no JVD CVS/Heart: RRR, normal S1S2, pulses present bilaterally Chest/Lungs: CTA B, Symmetrical chest expansion, good air entry bilaterally GI/Abdomen: soft, NTND, good bowel sounds, no guarding or rebound /Bladder: no suprapubic tenderness, no CVA or paraspinal tenderness Extermity/Skin: no c/c/e, no obvious rash MSK: FROM x 4 Neuro: CN 2-12 grossly intact, no new focal deficits Psych: calm - Constitutional Vitals: Temp Pulse Resp BP Pulse Ox 98.7 F 66 18 105/73 99 09/15/19 12:36 09/15/19 12:36 09/15/19 12:36 09/15/19 12:36 09/15/19 12:36 General appearance: Present: no acute distress Results - Labs CBC & Chem 7: 09/14/19 13:38 09/14/19 08:02 Labs: Laboratory Last Values WBC 6.7 K/mm3 (4.5-11.0) 09/14/19 08:02 RBC 3.47 M/mm3 (3.65-5.03) L 09/14/19 08:02 Hgb 7.8 gm/dl (10.1-14.3) L 09/14/19 13:38 Hct 26.1 % (30.3-42.9) L 09/14/19 13:38 MCV 73 fl (79-97) L 09/14/19 08:02 MCH 22 pg (28-32) L 09/14/19 08:02 MCHC 30 % (30-34) 09/14/19 08:02 RDW 20.1 % (13.2-15.2) H 09/14/19 08:02 Plt Count 368 K/mm3 (140-440) 09/14/19 08:02 Lymph % (Auto) 23.1 % (13.4-35.0) 09/14/19 08:02 Love % (Auto) 8.4 % (0.0-7.3) H 09/14/19 08:02 Eos % (Auto) 1.5 % (0.0-4.3) 09/14/19 08:02 Baso % (Auto) 1.0 % (0.0-1.8) 09/14/19 08:02 Lymph # 1.5 K/mm3 (1.2-5.4) 09/14/19 08:02 Love # 0.6 K/mm3 (0.0-0.8) 09/14/19 08:02 Eos # 0.1 K/mm3 (0.0-0.4) 09/14/19 08:02 Baso # 0.1 K/mm3 (0.0-0.1) 09/14/19 08:02 Seg Neutrophils % 66.0 % (40.0-70.0) 09/14/19 08:02 Seg Neutrophils # 4.4 K/mm3 (1.8-7.7) 09/14/19 08:02 PT 14.3 Sec. (12.2-14.9) 09/12/19 19:34 INR 1.12 (0.87-1.13) 09/12/19 19:34 APTT 30.8 Sec. (24.2-36.6) 09/12/19 19:34 Sodium 140 mmol/L (137-145) 09/14/19 08:02 Potassium 3.4 mmol/L (3.6-5.0) L 09/14/19 08:02 Chloride 106.0 mmol/L (98-107) 09/14/19 08:02 Carbon Dioxide 21 mmol/L (22-30) L 09/14/19 08:02 Anion Gap 16 mmol/L 09/14/19 08:02 BUN 6 mg/dL (7-17) L 09/14/19 08:02 Creatinine 0.4 mg/dL (0.7-1.2) L 09/14/19 08:02 Estimated GFR > 60 ml/min 09/14/19 08:02 BUN/Creatinine Ratio 15 % 09/14/19 08:02 Glucose 102 mg/dL (65-100) H 09/14/19 08:02 Calcium 8.5 mg/dL (8.4-10.2) 09/14/19 08:02 Iron 187 ug/dL (37-170) H 09/13/19 17:47 TIBC 345 mcg/dL (250-450) 09/13/19 17:47 Ferritin 3.9 ng/mL (13.0-400.0) L 09/13/19 11:14 Total Bilirubin 0.40 mg/dL (0.1-1.2) 09/12/19 19:09 AST 12 units/L (5-40) 09/12/19 19:09 ALT 5 units/L (7-56) L 09/12/19 19:09 Alkaline Phosphatase 62 units/L (35-129) 09/12/19 19:09 Troponin T < 0.010 ng/mL (0.00-0.029) 09/12/19 20:59 NT-Pro-B Natriuret Pep 15.79 pg/mL (0-450) 09/12/19 19:09 Total Protein 8.3 g/dL (6.3-8.2) H 09/12/19 19:09 Albumin 3.5 g/dL (3.9-5) L 09/12/19 19:09 Albumin/Globulin Ratio 0.7 % 09/12/19 19:09 Triglycerides 46 mg/dL (2-149) 09/13/19 01:45 Cholesterol 113 mg/dL (50-199) 09/13/19 01:45 LDL Cholesterol Direct 58 mg/dL (50-130) 09/13/19 01:45 HDL Cholesterol 57 mg/dL (40-59) 09/13/19 01:45 Cholesterol/HDL Ratio 1.98 % 09/13/19 01:45 Vitamin B12 228.7 pg/mL (211-911) 09/13/19 17:47 Folate 13.98 ng/mL (7.3-26.0) 09/13/19 17:47 HCG, Qual Negative (Negative) 09/12/19 19:09 Urine Color Colorless (Yellow) 09/13/19 01:52 Urine Turbidity Clear (Clear) 09/13/19 01:52 Urine pH 6.0 (5.0-7.0) 09/13/19 01:52 Ur Specific [place] 1.019 (1.003-1.030) 09/13/19 01:52 Urine Protein <15 mg/dl mg/dL (Negative) 09/13/19 01:52 Urine Glucose (UA) Neg mg/dL (Negative) 09/13/19 01:52 Urine Ketones Neg mg/dL (Negative) 09/13/19 01:52 Urine Blood Sm (Negative) 09/13/19 01:52 Urine Nitrite Neg (Negative) 09/13/19 01:52 Urine Bilirubin Neg (Negative) 09/13/19 01:52 Urine Urobilinogen < 2.0 mg/dL (<2.0) 09/13/19 01:52 Ur Leukocyte Esterase Neg (Negative) 09/13/19 01:52 Urine WBC (Auto) 0.0 /HPF (0.0-6.0) 09/13/19 01:52 Urine RBC (Auto) 1.0 /HPF (0.0-6.0) 09/13/19 01:52 Blood Type A POSITIVE 09/13/19 04:35 Antibody Screen Positive 09/13/19 04:35 Antibody Identification Anti-K 09/13/19 04:35 Direct Antiglob Test Negative 09/13/19 04:35 DARRYL, Poly Interpret Negative 09/13/19 04:35 Crossmatch See Detail 09/13/19 04:35 Active Medications - Current Medications Current Medications: Generic Name Dose Route Start Last Admin Trade Name Freq PRN Reason Stop Dose Admin Acetaminophen 650 mg 09/13/19 00:31 Tylenol PO Q4H PRN Pain MILD(1-3)/Fever >100.5/[place] Albuterol 2.5 mg 09/13/19 00:31 Proventil IH Q3HRT PRN Shortness Of Breath Atorvastatin Calcium 20 mg 09/13/19 22:00 09/14/19 21:31 Lipitor PO 20 mg QHS TAYLA Administration Cyanocobalamin 1,000 mcg 09/15/19 10:00 09/15/19 09:52 Vitamin B-12 PO 1,000 mcg QDAY TAYLA Administration Docusate Sodium 100 mg 09/13/19 10:00 09/15/19 09:52 Colace PO 100 mg BID TAYLA Administration Ferrous Sulfate 325 mg 09/14/19 22:00 09/15/19 09:52 Feosol PO 325 mg BID TAYLA Administration Morphine Sulfate 2 mg 09/13/19 00:31 09/14/19 00:23 Morphine IV 2 mg Q4H PRN Administration Pain, Moderate (4-6) Multivitamins 1 each 09/13/19 17:00 09/15/19 09:52 Theragran Tab PO 1 each QDAY TAYLA Administration Nitroglycerin 0.4 mg 09/12/19 19:23 Nitrostat SL .Q5MIN PRN Chest Pain Ondansetron HCl 4 mg 09/13/19 00:31 09/14/19 00:28 Zofran IV 4 mg Q8H PRN Administration Nausea And Vomiting Pantoprazole Sodium 40 mg 09/13/19 10:00 09/15/19 09:52 Protonix PO 40 mg QDAY TAYLA Administration Sodium Chloride 10 ml 09/13/19 10:00 09/15/19 09:53 Sodium Chloride Flush Syringe 10 Ml IV 10 ml BID TAYLA Administration Sodium Chloride 10 ml 09/13/19 00:31 Sodium Chloride Flush Syringe 10 Ml IV PRN PRN LINE FLUSH
--- NOTE | 2019-09-15 16:01 | Discharge Summary ---
Providers - Providers Date of Admission: 09/13/19 14:25 Date of discharge: 09/15/19 Attending physician: JAYASHREE SOUSA 09/13/19 Consult to Cardiac Rehabilitation [CONS] Routine Reason For Exam: Phase I 09/13/19 09:05 Consult to Physician [CONS] Routine Comment: Consulting Provider: LINH BROWN Physician Instructions: I spoke with Reason For Exam: anemia with positive antibodities Primary care physician: [employer]PERATOR Hospitalization Condition: Stable Hospital course: Patient is a 44-year-old -[place] woman with history of hypertension, TIA, GERD, and asthma who presents to [facility] ED with complaints of chest pain, sob and dyspnea on exertion for the past week. Pt states that she has been experiencing substernal chest pain with radiation to left and right chest, back and BLE for the past week. Her pain is accompanied by SOB. During the past 3 days her SOB has worsened. She is unable to walk 5 steps without becoming SOB. Furthermore, pt is unable to lay flat and has to sleep sitting up in chair. Pt also complains of BLE edema with generalized weakness. Pt admits to be noncompliant with meds. She admits to nausea. She denies emesis, cough, hemoptysis, fever, headache, visual disturbances, or syncope. She denies previous cardiac workup. * CXR IMPRESSION: 1. No acute finding. No significant change. * CT angio Chest IMPRESSION: 1. No CT evidence for pulmonary embolism. 2. No acute findings. Acute Chest Pain stress test abnormal, moderate clinical suspicion for ischemia, Cardiac CT heart today R/O ACS -Initiate chest pain protocol -Continuous telemetry monitoring -Continue supportive care -Pain mgmt -Troponin negative x 2 -EKG unrevealing for acute ischemic abnormalities -CXR unremarkable -Lexiscan pending -On Plavix and Statin Anemia -Hemoglobin on admission 6.9 -Hx chronic anemia -No s/s of bleeding -1U PRBC ordered; transfusion pending -Continue to monitor hemoglobin -Transfuse as needed Dyspnea on Exertion -O2 sat 98-100% on RA -Hx Asthma -CT angio Chest negative for PE -Likely secondary to anemia, abdominal obesity/ Pulmonary disease -ProBNP WNL -Albuterol prn -Continue supportive care HTN -Hx of HTN non-compliant with meds -Monitor BP -Resume home hypertensive meds once medication home meds have been reconciled -IV hydralazine when necessary Morbid Obesity -BMI 51.2kg -Diet and lifestyle modifications -May benefit from OP weight mgmt program Hx Asthma -Albuterol prn DVT PPX -scd due to anemia disposition: continue inpatient care, stress test abnormal, moderate clinical suspicion for ischemia, Cardiac CT heart today Disposition: DC- TO HOME OR SELFCARE Time spent for discharge: 32 minutes Core Measure Documentation - Palliative Care Palliative Care/ Comfort Measures: Not Applicable - Core Measures Any of the following diagnoses?: none - VTE Discharge Requirements Deep Vein Thrombosis/Pulmonary Embolism Present on Admission: No Has pt received <5 days of overlap therapy or INR<2.0: No Anticoagulant overlap therapy prescribed at discharge: No Contraindication No Overlap Therapy order at DC: Not Indicated Exam - Physical Exam Narrative exam: Gen: WDWN, NAD, Awake, Alert, Orientated HEENT: NCAT, EOMI, PERRL, OP Clear Neck: supple, no adenopathy, no thyromegaly, no JVD CVS/Heart: RRR, normal S1S2, pulses present bilaterally Chest/Lungs: CTA B, Symmetrical chest expansion, good air entry bilaterally GI/Abdomen: soft, NTND, good bowel sounds, no guarding or rebound /Bladder: no suprapubic tenderness, no CVA or paraspinal tenderness Extermity/Skin: no c/c/e, no obvious rash MSK: FROM x 4 Neuro: CN 2-12 grossly intact, no new focal deficits Psych: calm - Constitutional Vitals: Temp Pulse Resp BP Pulse Ox 98.7 F 66 18 105/73 99 09/15/19 12:36 09/15/19 12:36 09/15/19 12:36 09/15/19 12:36 09/15/19 12:36 Plan Activity: other (no strenous activity) Diet: low salt Follow up with: PRIMARY CAREMD [Primary Care Provider] - 3-5 Days ADIEL MIJARES MD [Staff Physician] - 7 Days Prescriptions: AtorvaSTATin [Lipitor] 20 mg PO QHS #30 tablet ALBUTEROL NEB's [Proventil 0.083% NEBS] 2.5 mg IH Q3HRT PRN #15 nebu PRN Reason: Shortness Of Breath
[2019-09-15 17:02] VITALS: BP 102/46
--- NOTE | 2019-09-17 13:06 | CT Calcium Scoring Report ---
Coronary Calcium Score Date of service: 09/17/19 Procedure: High-resolution computed tomographic imaging of the chest was performed on09/13/19 with particular attention paid to the coronary arteries. Images from the examination were analyzed for the presence and extent of coronary artery calcification, using coronary calcium quantification software. The patient tolerated the procedure well and there were no complications. The results of the coronary calcification analysis are provided below. The patient scores are compared with published data related to scores for people of a similar age and the same gender. - Findings Total Agatson Score: 0 Findings: cardiac CTA Indication: Chest pain abnormal stress test Procedure: The patient was brought to the cardiac CT angiography laboratory at [facility] in stable condition after a [address] angiography was performed on the 64 slice scanner using the standard protocol. Heart rate was regulated by beta-blockade. Sublingual nitroglycerin was administered prior to imaging. A coronary artery calcium score via the Agatston method was performed. Left ventriculography was performed via the Volumetric threshold based segmentation approach. a separate radiology assessment of the noncardiac structures in the field of view will be provided. The left ventricular ejection fraction is 52% the great vessels in the field of view appear normal. cardiac chamber dimensions and wall thickness appear normal. The mitral and aortic valves appear normal. There are no intracardiac masses. There is no pericardial the interventricular and interatrial septum appear normal. The left atrial appendage appears normal. The pulmonary veins enter the left atrium appropriate Coronary angiography reveals a right dominant system. The coronary arteries originate properly from their respective cusps. The left main coronary artery, the left anterior descending coronary artery, and the circumflex coronary artery appeared normal. The proximal and mid portions of the right coronary artery appeared normal. The distal right coronary artery is not well seen due to motion artifact no significant occlusive disease is apparent. The procedure was tolerated well without apparent complications.
== END 2019-09-15 19:00 | disposition home or self-care (01) | DRG 812 ==
LOC: ED 17:07 → 4A 09-13 00:31 → OBSVTOIN 09-13 14:25
PROVIDERS: ADMIT Internal Medicine; ATTEND Internal Medicine
PROC: 30233N1 Transfusion of Nonautologous Red Blood Cells into Peripheral Vein, Percutaneous Approach (ICD-10-PCS; principal; 2019-09-13)
DX: D50.9 Iron deficiency anemia, unspecified (principal); Z68.43 Body mass index [BMI] 50.0-59.9, adult; I24.9 Acute ischemic heart disease, unspecified; K21.9 Gastro-esophageal reflux disease without esophagitis; I10 Essential (primary) hypertension; E66.01 Morbid (severe) obesity due to excess calories; J45.909 Unspecified asthma, uncomplicated; Z88.6 Allergy status to analgesic agent; Z79.899 Other long term (current) drug therapy; Z90.49 Acquired absence of other specified parts of digestive tract; Z86.73 Personal history of transient ischemic attack (TIA), and cerebral infarction without residual deficits
CPT/HCPCS: 36415; 71046; 71275; 75574; 78452; 80048; 80053; 80061; 81001; 82607; 82728; 82747; 83550; 83880; 84484; 84703; 85014; 85018; 85025; 85610; 85730; 86850; 86870; 86880; 86900; 86901; 86920; 86922; 93005; 93010; 93017; 93306; 96374; G0378; A9270-GY; A9502; J1940; J2270; J2405; J2785; J2916; J3420; J7040; P9016; Q9967